=== PATIENT | female | born 1985 | race Caucasian/White ===

== ENCOUNTER 2016-11-24 19:28 | Emergency (ER) ==
[2016-11-24 19:38] VITALS: BP 118/70; TEMP 99; BMI 21.4
[2016-11-24] MEDS ORDERED: TORADOL IM STA (20:00)
[2016-11-24] MEDS ORDERED: CLEOCIN PO STA (20:00)
--- NOTE | 2016-11-24 20:03 | ED.PDOC ---
General ED Provider: Dr. BARRY LYONS Chief Complaint: Tooth Problem Stated Complaint: Right upper gum is swollen and tender. Time Seen by Physician: 20:00 Mode of Arrival: Walk-In Information Source: Patient Primary Care Provider: BARRY LYONS[facility] Nursing and Triage Documentation Reviewed and Agree: Yes EENT Complaint Exam - Dental/Oral Complaint/Exam Mechanism of Injury: No known trauma Symptoms Are: Still present Timing: Constant Initial Severity: Moderate Current Severity: Moderate Character: Reports: Aching Aggravating: Reports: Cold, Chewing Alleviating: Reports: None Associated Signs and Symptoms: Reports: Swelling, Foul odor, Foul taste in mouth Related History: Reports: Similar episode (multiple) Cardiac Risk Factors: Reports: None Dental/Oral Surgical History: Reports: None Tooth Findings: Present: Cellulitis (of the gum) Teeth Picture: 1 - no teeth, swollen gums Differential Diagnoses: Gingivitis Review of Systems - Review Of Systems Constitutional: Reports: No symptoms Eyes: Reports: No symptoms Ears, Nose, Mouth, Throat: Reports: No symptoms Respiratory: Reports: No symptoms Cardiac: Reports: No symptoms GI: Reports: No symptoms : Reports: No symptoms Musculoskeletal: Reports: No symptoms Skin: Reports: No symptoms Neurological: Reports: No symptoms Endocrine: Reports: No symptoms Hematologic/Lymphatic: Reports: No symptoms All Other Systems: Reviewed and Negative Past Medical History - Past Medical History Previously Healthy: No Endocrine: Reports: None Cardiovascular: Reports: None Respiratory: Reports: None Hematological: Reports: None Gastrointestinal: Reports: None Genitourinary: Reports: None Neuro/Psych: Reports: Other (similar episodes in the past, ( has been told her that they are from anxiety.)) Musculoskeletal: Reports: None Cancer: Reports: None Last Menstrual Period: 10/31/2016 - Surgical History General Surgical History: Reports: None - Family History Family History: Reports: None - Social History Smoking Status: Current every day smoker Smoking Cessation Counseling Time: > 3 min - 10 min Hx Substance Use: Yes (WEED) Alcohol Screening: None Physical Exam - Physical Exam Appearance: Well-appearing, No pain distress, Well-nourished Eyes: ZACKARY, EOMI, Conjunctiva clear ENT: Ears normal, Nose normal, Oropharynx normal Respiratory: Airway patent, Breath sounds clear, Breath sounds equal, Respirations nonlabored Cardiovascular: RRR, Pulses normal, No rub, No murmur GI/: Soft, Nontender, No masses, Bowel sounds normal, No Organomegaly Musculoskeletal: Normal strength, ROM intact, No edema, No calf tenderness Skin: Warm, Dry, Normal color Neurological: Sensation intact, Motor intact, Reflexes intact, Cranial nerves intact, Alert, Oriented Psychiatric: Affect appropriate, Mood appropriate Critical Care Note - Critical Care Note Total Time (mins): 0 Course - Course Orders, Labs, Meds: Orders Category Date Time Status Clindamycin HCl [Cleocin] MEDS 11/24/16 20:00 Stat 300 mg PO ONCE STA Ketorolac Tromethamine [Toradol] MEDS 11/24/16 20:00 Stat 30 mg IM ONCE STA Vital Signs: Temp Pulse Resp BP Pulse Ox 11/24/16 19:28 99.0 F 106 H 18 118/70 98 Departure - Departure Time of Disposition: 20:05 Disposition: HOME SELF-CARE Discharge Problem: Gingivitis Instructions: Gingivitis (ED) Condition: Stable Pt referred to PMD for follow-up: Yes Additional Instructions: Needs f/u with dentist no solids Prescriptions: Clindamycin HCl 300 mg PO TID #15 capsule Tramadol HCl 50 mg PO BID #14 tablet Allergies/Adverse Reactions: Allergies diphenhydramine [From Benadryl] Adverse Reaction (Verified 11/24/16 19:33) Penicillins Adverse Reaction (Verified 11/24/16 19:33) Swelling Home Medications: Ambulatory Orders Clindamycin HCl 300 mg PO TID #15 capsule 11/24/16 Tramadol HCl 50 mg PO BID #14 tablet 11/24/16 Disposition Discussed With: Patient
== END 2016-11-24 20:21 | disposition home or self-care (01) ==
LOC: ED 19:28
DX: K05.00 Acute gingivitis, plaque induced (principal); F17.210 Nicotine dependence, cigarettes, uncomplicated
CPT/HCPCS: 96372; 99282

== ENCOUNTER 2016-12-24 | Emergency (ER) ==
[2016-12-24 00:09] VITALS: BP 102/70; TEMP 98.6; BMI 21.1
[2016-12-24] MEDS ORDERED: TYLENOL #3 TAB PO STA (00:31)
[2016-12-24] MEDS ORDERED: SILVADENE CREAM TP ONE (00:31)
[2016-12-24] MEDS ORDERED: SILVADENE CREAM TP STA (00:31)
[2016-12-24] MEDS ORDERED: TYLENOL #3 TAB ONE (00:32)
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
== END 2016-12-24 00:53 | disposition home or self-care (01) ==
LOC: ED
DX: T25.021A Burn of unspecified degree of right foot, initial encounter (principal); X15.8XXA Contact with other hot household appliances, initial encounter
CPT/HCPCS: 99282; 99283

== ENCOUNTER 2017-01-15 20:50 | Emergency (ER) ==
[2017-01-15 20:56] VITALS: BMI 21.0
[2017-01-15] MEDS ORDERED: SODIUM CHLORIDE 1,000 ML IV STA (21:06)
[2017-01-15] MEDS ORDERED: MORPHINE 2 MG/ML SYRINGE IVP STA (21:06)
[2017-01-15] MEDS ORDERED: ZOFRAN 4 MG/2 ML IVP STA (21:06)
[2017-01-15 21:22] LABS: BASOPHILS % (AUTO) 0.4 % (0.0-3.0); EOSINOPHILS # (AUTO) 0.2 K/ul (0.0-0.7); EOSINOPHILS % (AUTO) 1.8 % (0.0-7.0); HEMATOCRIT 30.3 % (37.0-47.0); HEMOGLOBIN 10.4 g/dl (12.0-16.0); IMMATURE GRANULOCYTE % (AUTO) 0.4 % (0.0-5.0); LYMPHOCYTES # (AUTO) 2.3 K/uL (0.60-3.4); LYMPHOCYTES % (AUTO) 22.8 (10.0-50.0); MEAN CORPUSCULAR HGB CONC 34.3 (31.8-35.4); MEAN CORPUSCULAR VOLUME 90.4 fl (81.0-99.0); MONOCYTES # (AUTO) 0.8 K/uL (0.4-2.0); MONOCYTES % (AUTO) 7.7 (0-10); NEUTROPHILS # (AUTO) 6.8 K/ul (2.0-6.9); NEUTROPHILS % (AUTO) 66.9; PLATELET COUNT 328 10^3/uL (140-440); RED BLOOD COUNT 3.35 10^6/ul (4.20-5.40); WHITE BLOOD COUNT 10.09 K/ul (4.6-10.2)
[2017-01-15 21:28] LABS: BILIRUBIN,URINE Negative (NEGATIVE); KETONES,URINE Negative (NEGATIVE); LEUKOCYTE ESTERASE ,URINE Negative (NEGATIVE); NITRITE,URINE Negative (NEGATIVE); PH,URINE 5.5 (5-9); PROTEIN,URINE Trace (NEGATIVE); URINE, BLOOD Trace-intact (NEGATIVE)
[2017-01-15 21:35] LABS: ADD URINE MICROSCOPIC YES; BACTERIA,URINE 1+ (NOT PRESENT)
[2017-01-15 21:39] LABS: FLU INTERNAL QC INTERNAL QC VALID; RAPID FLU A NEGATIVE (NEGATIVE); RAPID FLU B NEGATIVE (NEGATIVE)
[2017-01-15 21:48] LABS: ALBUMIN 3.2 g/dL (3.4-5.0); ALBUMIN/GLOBULIN RATIO 0.94; ANION GAP 11.9; BILIRUBIN,TOTAL 0.17 mg/dL (0.00-1.20); BUN/CREATININE RATIO 19.67; CREATININE 0.61 mg/dL (0.60-1.30); POTASSIUM 3.9 mmol/L (3.5-5.10); TOTAL PROTEIN 6.6 g/dL (6.4-8.2)
[2017-01-15 21:51] LABS: ERYTHROCYTE SEDIMENTATION RATE 44 mm/hr (0-20); ESR INTERNAL QC INTERNAL QC VALID
[2017-01-15 22:09] LABS: ACETAMINOPHEN < 3 ug/ml (10-30); SALICYLATE < 5.0 mg/dL (2.8-20.0)
[2017-01-15 22:10] LABS: SERUM PREGNANCY INTERNAL QC INTERNAL QC VALID
--- NOTE | 2017-01-15 22:19 | ED.PDOC ---
General ED Provider: Dr. VEENA SEPULVEDA-ER Chief Complaint: Abdominal Pain Stated Complaint: daniel been hurting for several weeeks..daniel been taking a lot of motrin and tylenol pm -- Time Seen by Physician: 20:55 Mode of Arrival: Walk-In Information Source: Patient Exam Limitations: No limitations Primary Care Provider: ABRRY LYONS[facility] Nursing and Triage Documentation Reviewed and Agree: Yes GI Complaint Exam - Abdominal Pain Complaint/Exam Onset: Gradual Duration: several weeks Symptoms Are: Still present Timing: Constant Initial Severity: Mild Current Severity: Moderate Location of Pain: RUQ, LLQ Radiates To: Reports: Back Character: Reports: Dull, Aching Aggravating: Reports: None Alleviating: Reports: None Associated Signs and Symptoms: Reports: Back pain, Decreased appetite, Nausea. Denies: Diaphoresis, Fever, Cough, Chest pain, Dizziness, Constipation, Blood in stool, Dysuria, Urinary frequency, Decreased urine output, Vaginal bleeding, Vaginal discharge, Vomiting, Diarrhea, Sore throat AAA Risk Factors: Reports: None Cardiac Risk Factors: Reports: None Patient Rh Status: Unknown Abdominal Findings: Present: None Differential Diagnoses: Pancreatitis, Ectopic Review of Systems - Review Of Systems Constitutional: Reports: No symptoms Eyes: Reports: No symptoms Ears, Nose, Mouth, Throat: Reports: No symptoms Respiratory: Reports: No symptoms Cardiac: Reports: No symptoms GI: Reports: Abdominal pain, Nausea : Reports: No symptoms Musculoskeletal: Reports: No symptoms Skin: Reports: No symptoms Neurological: Reports: No symptoms Endocrine: Reports: No symptoms Hematologic/Lymphatic: Reports: No symptoms All Other Systems: Reviewed and Negative Past Medical History - Past Medical History Previously Healthy: No Endocrine: Reports: None Cardiovascular: Reports: None Respiratory: Reports: None Hematological: Reports: None Gastrointestinal: Reports: None Genitourinary: Reports: None Neuro/Psych: Reports: Other (similar episodes in the past, ( has been told her that they are from anxiety.)) Musculoskeletal: Reports: None Cancer: Reports: None Last Menstrual Period: 3 months - Surgical History General Surgical History: Reports: None - Family History Family History: Reports: None - Social History Smoking Status: Current every day smoker, Light tobacco smoker Hx Substance Use: No Alcohol Screening: None Lives: With family Physical Exam - Physical Exam Appearance: Well-appearing, No pain distress, Well-nourished Pain Distress: Mild Eyes: ZACKARY, EOMI, Conjunctiva clear ENT: Ears normal, Nose normal, Oropharynx normal Neck: Supple Respiratory: Airway patent, Breath sounds clear, Breath sounds equal, Respirations nonlabored Cardiovascular: RRR GI/: Soft Musculoskeletal: Normal strength Skin: Warm, Dry, Normal color Neurological: Sensation intact, Motor intact, Reflexes intact, Cranial nerves intact, Alert, Oriented Psychiatric: Affect appropriate, Mood appropriate Re-Evaluation - Re-Evaluation Time of Re-Evaluation: 22:21 Status: Improved Vital Signs Stable: Yes Pain Level: 1 Appearance: NAD Lungs: Clear Skin: Warm and Dry Neuro: Alert and Oriented X3 CV: RRR Physician Notification - Case Discussed Physician Notified: dr guillaume Time of Notification: 22:27 Critical Care Note - Critical Care Note Total Time (mins): 0 Course - Course Hematology/Chemistry: 01/15/17 21:15 01/15/17 21:15 Orders, Labs, Meds: Lab Review 01/15/17 01/15/17 01/15/17 21:00 21:14 21:15 WBC 10.09 RBC 3.35 L Hgb 10.4 L Hct 30.3 L MCV 90.4 MCH 31.0 MCHC 34.3 RDW Coeff of Jeffrey 14.2 Plt Count 328 Immature Gran % (Auto) 0.4 Neut % (Auto) 66.9 Lymph % (Auto) 22.8 Hinds % (Auto) 7.7 Eos % (Auto) 1.8 Baso % (Auto) 0.4 Immature Gran # (Auto) 0.0 Neut # 6.8 Lymph # 2.3 Hinds # 0.8 Eos # 0.2 Baso # 0.0 ESR 44 H Sodium 137 Potassium 3.9 Chloride 105 Carbon Dioxide 24 Anion Gap 11.9 BUN 12 Creatinine 0.61 Estimated GFR (MDRD) 114.00 BUN/Creatinine Ratio 19.67 Glucose 83 Calcium 9.0 Total Bilirubin 0.17 AST 185 H ALT 215 H Alkaline Phosphatase 88 Total Protein 6.6 Albumin 3.2 L Globulin 3.4 Albumin/Globulin Ratio 0.94 Amylase 96 Lipase 45 HCG, Quant 02818.80 Serum , Qual Positive Urine Color Yellow Urine Clarity Clear Urine pH 5.5 Ur Specific [place] >=1.030 Urine Protein Trace Urine Glucose (UA) Negative Urine Ketones Negative Urine Blood Trace-intact Urine Nitrite Negative Urine Bilirubin Negative Urine Urobilinogen 0.2 Ur Leukocyte Esterase Negative Urine Microscopic RBC 0-2 Urine Microscopic WBC 0-2 Ur Squamous Epith Cells 2-5 Urine Bacteria 1+ Salicylate Level mg/dL < 5.0 Acetaminophen < 3 L Influenza A (Rapid) Influenza B (Rapid) 01/15/17 21:25 WBC RBC Hgb Hct MCV MCH MCHC RDW Coeff of Jeffrey Plt Count Immature Gran % (Auto) Neut % (Auto) Lymph % (Auto) Hinds % (Auto) Eos % (Auto) Baso % (Auto) Immature Gran # (Auto) Neut # Lymph # Hinds # Eos # Baso # ESR Sodium Potassium Chloride Carbon Dioxide Anion Gap BUN Creatinine Estimated GFR (MDRD) BUN/Creatinine Ratio Glucose Calcium Total Bilirubin AST ALT Alkaline Phosphatase Total Protein Albumin Globulin Albumin/Globulin Ratio Amylase Lipase HCG, Quant Serum , Qual Urine Color Urine Clarity Urine pH Ur Specific [place] Urine Protein Urine Glucose (UA) Urine Ketones Urine Blood Urine Nitrite Urine Bilirubin Urine Urobilinogen Ur Leukocyte Esterase Urine Microscopic RBC Urine Microscopic WBC Ur Squamous Epith Cells Urine Bacteria Salicylate Level mg/dL Acetaminophen Influenza A (Rapid) Negative Influenza B (Rapid) Negative Orders Category Date Time Status NPO REMINDER: IMAGING ONCE CARE 01/15/17 21:06 Active IV [ED IV/MEDIPORT/POWERPORT] .ONCE EMERGENCY 01/15/17 21:06 Active AMYLASE Stat LAB 01/15/17 21:15 Completed CBC W/ AUTO DIFF Stat LAB 01/15/17 21:15 Completed COMPREHENSIVE METABOLIC PANEL Stat LAB 01/15/17 21:15 Completed ESR Stat LAB 01/15/17 21:15 Completed HCG,QUANTITATIVE Stat LAB 01/15/17 21:15 Completed LIPASE Stat LAB 01/15/17 21:15 Completed RAPID FLU A/B Stat LAB 01/15/17 21:25 Completed SALICYLATE Stat LAB 01/15/17 21:14 Completed SERUM Stat LAB 01/15/17 21:15 Completed STREP SCREEN Stat LAB 01/15/17 21:25 Received TYLENOL LEVEL [ACETAMINOPHEN] Stat LAB 01/15/17 21:14 Completed URINALYSIS C & S IF INDICATED Stat LAB 01/15/17 21:00 Completed URINE CULTURE Stat LAB 01/15/17 21:35 Received 0.9 % Sodium Chloride [Saline Flush] MEDS 01/15/17 21:06 Ordered 1 syr IVF PRN PRN Morphine Sulfate [Morphine 2 mg/ml Syringe] MEDS 01/15/17 21:06 Discontinued 2 mg IVP ONCE STA Ondansetron HCl/Pf [Zofran 4 mg/2 ml] MEDS 01/15/17 21:06 Discontinued 4 mg IVP ONCE STA Sodium Chloride 0.9% [Sodium Chloride] 1,000 ml MEDS 01/15/17 21:06 Active IV 100 mls/hr Medications Generic Name Dose Route Start Last Admin Trade Name Freq PRN Reason Stop Dose Admin Sodium Chloride 1,000 mls @ 100 mls/hr 01/15/17 21:06 01/15/17 21:36 Sodium Chloride IV 01/16/17 07:05 100 mls/hr .Q10H STA Administration Sodium Chloride 1 syr 01/15/17 21:06 01/15/17 21:45 Saline Flush IVF 1 syr PRN PRN Administration To flush IV Discontinued Medications Generic Name Dose Route Start Last Admin Trade Name Freq PRN Reason Stop Dose Admin Morphine Sulfate 2 mg 01/15/17 21:06 01/15/17 21:39 Morphine 2 Mg/Ml Syringe IVP 01/15/17 21:07 2 mg ONCE STA Administration Ondansetron HCl 4 mg 01/15/17 21:06 01/15/17 21:38 Zofran 4 Mg/2 Ml IVP 01/15/17 21:07 4 mg ONCE STA Administration Vital Signs: Temp Pulse Resp BP Pulse Ox 01/15/17 20:50 100 F H 126 H 24 144/77 H 98 Departure - Departure Time of Disposition: 22:21 Disposition: TSF SHORT-TRM HOSP Discharge Problem: Abdominal pain, test positive Instructions: Abdominal Pain (ED) Condition: Fair Pt referred to PMD for follow-up: No Allergies/Adverse Reactions: Allergies diphenhydramine [From Benadryl] Adverse Reaction (Verified 01/15/17 20:58) Penicillins Adverse Reaction (Verified 01/15/17 20:58) Swelling Home Medications: Ambulatory Orders 1 [No Reported Medications] 12/24/16 Disposition Discussed With: Patient, Family
[2017-01-15 22:37] VITALS: BP 112/79; TEMP 98.2
[2017-01-15 22:50] LABS: COCAIN SCREEN,URINE NEGATIVE (NEGATIVE)
== END 2017-01-15 23:26 | disposition short-term general hospital (02) ==
LOC: ED 20:50
DX: R10.11 Right upper quadrant pain (principal); R10.32 Left lower quadrant pain; F17.210 Nicotine dependence, cigarettes, uncomplicated; Z33.1 Pregnant state, incidental
CPT/HCPCS: 36415; 80053; 80306; 80307; 81001; 82150; 83690; 84702; 84703; 85025; 85651; 87086; 87651; 87804; 87880; 96361; 96374; 96375; 99285

== ENCOUNTER 2017-01-23 14:50 | Emergency (ER) ==
[2017-01-23 15:09] VITALS: BP 115/78; TEMP 98.7; BMI 21.5
[2017-01-23 15:45] LABS: BASOPHILS % (AUTO) 0.3 % (0.0-3.0); EOSINOPHILS # (AUTO) 0.1 K/ul (0.0-0.7); EOSINOPHILS % (AUTO) 0.8 % (0.0-7.0); HEMATOCRIT 31.7 % (37.0-47.0); HEMOGLOBIN 10.9 g/dl (12.0-16.0); IMMATURE GRANULOCYTE % (AUTO) 0.3 % (0.0-5.0); LYMPHOCYTES # (AUTO) 1.7 K/uL (0.60-3.4); MEAN CORPUSCULAR HEMOGLOBIN 31.1 pg (27.0-31.0); MEAN CORPUSCULAR HGB CONC 34.4 (31.8-35.4); MEAN CORPUSCULAR VOLUME 90.6 fl (81.0-99.0); MONOCYTES # (AUTO) 0.8 K/uL (0.4-2.0); MONOCYTES % (AUTO) 9.6 (0-10); NEUTROPHILS # (AUTO) 5.3 K/ul (2.0-6.9); PLATELET COUNT 347 10^3/uL (140-440); WHITE BLOOD COUNT 7.92 K/ul (4.6-10.2)
[2017-01-23 16:08] LABS: PARTIAL THROMBOPLASTIN TIME 27.4 SEC (23.9-40.0); PROTHROMBIN TIME 9.4 SEC (9.3-11.0)
[2017-01-23 16:15] LABS: ALBUMIN 3.3 g/dL (3.4-5.0); ALBUMIN/GLOBULIN RATIO 0.85; ANION GAP 10.7; BILIRUBIN,TOTAL 0.49 mg/dL (0.00-1.20); BUN/CREATININE RATIO 16.12; CALCIUM 9.1 mg/dL (8.2-10.2); CREATININE 0.62 mg/dL (0.60-1.30); POTASSIUM 3.7 mmol/L (3.5-5.10); TOTAL PROTEIN 7.2 g/dL (6.4-8.2)
--- NOTE | 2017-01-23 16:46 | ED.PDOC ---
General ED Provider: Dr. JELANI TURCIOS Chief Complaint: Vaginal Bleeding Stated Complaint: vaginal spotting , abdominal pain Time Seen by Physician: 14:55 (RLQ pain x 14 hours and scant vaginal spotting after intercourse last night) Mode of Arrival: Walk-In Information Source: Patient, Family Exam Limitations: No limitations [facility] Nursing and Triage Documentation Reviewed and Agree: Yes GI Complaint Exam - Abdominal Pain Complaint/Exam Onset: Gradual Duration: 15 hours Symptoms Are: Resolved Timing: Intermittent Initial Severity: Mild Current Severity: None Location of Pain: RLQ Character: Reports: Dull Aggravating: Reports: None Alleviating: Reports: None Associated Signs and Symptoms: Denies: Diaphoresis, Fever, Cough, Chest pain, Dizziness, Back pain, Constipation, Blood in stool, Dysuria, Urinary frequency, Decreased urine output, Decreased appetite, Vaginal bleeding, Vaginal discharge , Nausea, Vomiting, Diarrhea, Sore throat, Decreased activity : 2 Para: 1 Hx Total # of Abortions (Spontaneous & Elective): 0 AAA Risk Factors: Reports: None Cardiac Risk Factors: Reports: None Ectopic Risk Factors: Reports: None Ovarian Torsion Risk Factors: Reports: None Surgical Obstruction Risk Factors: Reports: None Related Surgical History: Reports: None Patient Rh Status: Unknown Abdominal Findings: Present: None (spouse present at all times ) Review of Systems - Review Of Systems Constitutional: Reports: No symptoms Eyes: Reports: No symptoms Ears, Nose, Mouth, Throat: Reports: No symptoms Respiratory: Reports: No symptoms Cardiac: Reports: No symptoms GI: Reports: Abdominal pain : Reports: Other (vaginal spotting) Musculoskeletal: Reports: No symptoms Skin: Reports: No symptoms Neurological: Reports: No symptoms Endocrine: Reports: No symptoms Hematologic/Lymphatic: Reports: No symptoms All Other Systems: Reviewed and Negative Past Medical History - Past Medical History Previously Healthy: Yes Endocrine: Reports: None Cardiovascular: Reports: None Respiratory: Reports: None Hematological: Reports: None Gastrointestinal: Reports: None Genitourinary: Reports: None Neuro/Psych: Reports: None Musculoskeletal: Reports: None Cancer: Reports: None Last Menstrual Period: 10/27 - Surgical History General Surgical History: Reports: None - Family History Family History: Reports: None - Social History Smoking Status: Former smoker Hx Substance Use: No Alcohol Screening: None - Immunizations Tetanus Shot up to Date: Yes Physical Exam - Physical Exam Appearance: Well-appearing, No pain distress, Well-nourished Eyes: ZACKARY, EOMI, Conjunctiva clear ENT: Ears normal, Nose normal, Oropharynx normal Respiratory: Airway patent, Breath sounds clear, Breath sounds equal, Respirations nonlabored Cardiovascular: RRR, Pulses normal, No rub, No murmur GI/: Soft, Nontender, No masses, Bowel sounds normal, No Organomegaly Musculoskeletal: Normal strength, ROM intact, No edema, No calf tenderness Skin: Warm, Dry, Normal color Neurological: Sensation intact, Motor intact, Reflexes intact, Cranial nerves intact, Alert, Oriented Psychiatric: Affect appropriate, Mood appropriate Critical Care Note - Critical Care Note Total Time (mins): 0 Course - Course Hematology/Chemistry: 01/23/17 15:38 01/23/17 15:38 Orders, Labs, Meds: Lab Review 01/23/17 15:38 WBC 7.92 RBC 3.50 L Hgb 10.9 L Hct 31.7 L MCV 90.6 MCH 31.1 H MCHC 34.4 RDW Coeff of Jeffrey 14.4 Plt Count 347 Immature Gran % (Auto) 0.3 Neut % (Auto) 67.0 Lymph % (Auto) 22.0 [place] % (Auto) 9.6 Eos % (Auto) 0.8 Baso % (Auto) 0.3 Immature Gran # (Auto) 0.0 Neut # 5.3 Lymph # 1.7 [place] # 0.8 Eos # 0.1 Baso # 0.0 PT 9.4 INR 0.91 APTT 27.4 Sodium 135 L Potassium 3.7 Chloride 103 Carbon Dioxide 25 Anion Gap 10.7 BUN 10 Creatinine 0.62 Estimated GFR (MDRD) 112.00 BUN/Creatinine Ratio 16.12 Glucose 84 Calcium 9.1 Total Bilirubin 0.49 AST 553 H ALT 692 H Alkaline Phosphatase 138 H Total Protein 7.2 Albumin 3.3 L Globulin 3.9 Albumin/Globulin Ratio 0.85 Orders Category Date Time Status Heart Tones [ED HEART RATE] .ONCE EMERGENCY 01/23/17 15:34 Active BLOOD CULTURE Stat LAB 01/23/17 15:38 Received CBC W/ AUTO DIFF Stat LAB 01/23/17 15:38 Completed COMPREHENSIVE METABOLIC PANEL Stat LAB 01/23/17 15:38 Completed PARTIAL THROMBOPLASTIN TIME Stat LAB 03/14/17 15:38 Completed PT WITH INR Stat LAB 01/23/17 15:38 Completed Vital Signs: Temp Pulse Resp BP Pulse Ox 01/23/17 14:50 98.7 F 88 20 115/78 99 Departure - Departure Time of Disposition: 16:50 (left amam refused to stay) Disposition: AMA Discharge Problem: Abdominal pain Instructions: Acute Abdominal Pain (ED) Condition: Good Pt referred to PMD for follow-up: No Additional Instructions: Please call your Family Physician as soon as possible to schedule a follow-up appointment. Allergies/Adverse Reactions: Allergies diphenhydramine [From Benadryl] Adverse Reaction (Verified 01/23/17 14:59) Penicillins Adverse Reaction (Verified 01/23/17 14:58) Home Medications: Ambulatory Orders Vit37/Iron/Folic Acid [Prenata Chewable Tablet] 2 mg PO DAILY 01/23/17
== END 2017-01-23 16:30 | disposition left against medical advice (07) ==
LOC: ED 14:50 → MERGE 14:50 → ED 16:30
DX: R10.31 Right lower quadrant pain (principal); Z33.1 Pregnant state, incidental
CPT/HCPCS: 36415; 80053; 85025; 85610; 85730; 87040; 99283

== ENCOUNTER 2017-02-07 01:08 | Emergency (ER) ==
--- NOTE | 2017-02-07 01:17 | ED.PDOC ---
General ED Provider: Dr. BARRY LYONS Chief Complaint: Non-specific Complaint Stated Complaint: been itching for 1 wk, on legs and all over. she is 19 wks Time Seen by Physician: 01:15 Nursing and Triage Documentation Reviewed and Agree: Yes Skin Complaint Exam - Skin Rash/Itching Complaint/Exam Symptoms Are: Still present Initial Severity: Mild Current Severity: Mild Potential Exposures: Reports: Unknown Alleviating: Reports: None Associated Signs and Symptoms: Denies: Difficulty breathing, Fever, Chills Skin Findings: Present: Weeping skin Differential Diagnoses: Allergic Reaction, Contact Dermatitis, Scabies Review of Systems - Review Of Systems Constitutional: Reports: Weakness Eyes: Reports: No symptoms Ears, Nose, Mouth, Throat: Reports: No symptoms Respiratory: Reports: No symptoms Cardiac: Reports: No symptoms GI: Reports: No symptoms : Reports: No symptoms Musculoskeletal: Reports: No symptoms Skin: Reports: Rash Neurological: Reports: No symptoms Endocrine: Reports: No symptoms Hematologic/Lymphatic: Reports: No symptoms All Other Systems: Reviewed and Negative Past Medical History - Past Medical History Previously Healthy: Yes Endocrine: Reports: None Cardiovascular: Reports: None Respiratory: Reports: None Hematological: Reports: None Gastrointestinal: Reports: None Genitourinary: Reports: None Neuro/Psych: Reports: None, Other Musculoskeletal: Reports: None Cancer: Reports: None - Surgical History General Surgical History: Reports: None - Family History Family History: Reports: None - Social History Smoking Status: Light tobacco smoker, Current every day smoker, Former smoker Smoking Cessation Counseling Time: > 10 min Hx Substance Use: No Alcohol Screening: None Physical Exam - Physical Exam Appearance: Well-appearing, No pain distress, Well-nourished Eyes: ZACKARY, EOMI, Conjunctiva clear ENT: Ears normal, Nose normal, Oropharynx normal Respiratory: Airway patent, Breath sounds clear, Breath sounds equal, Respirations nonlabored Cardiovascular: RRR, Pulses normal, No rub, No murmur GI/: Soft, Nontender, No masses, Bowel sounds normal, No Organomegaly Musculoskeletal: Normal strength, ROM intact, No edema, No calf tenderness Skin: Warm, Dry, Normal color Neurological: Sensation intact, Motor intact, Reflexes intact, Cranial nerves intact, Alert, Oriented Psychiatric: Affect appropriate, Mood appropriate Critical Care Note - Critical Care Note Total Time (mins): 0 Course - Course Hematology/Chemistry: 02/07/17 01:27 02/07/17 01:27 Orders, Labs, Meds: Lab Review 02/07/17 02/07/17 01:27 01:50 WBC 7.93 RBC 3.46 L Hgb 10.7 L Hct 30.9 L MCV 89.3 MCH 30.9 MCHC 34.6 RDW Coeff of Jeffrey 14.5 Plt Count 365 Immature Gran % (Auto) 0.5 Neut % (Auto) 57.4 Lymph % (Auto) 28.1 [place] % (Auto) 10.8 H Eos % (Auto) 2.8 Baso % (Auto) 0.4 Immature Gran # (Auto) 0.0 Neut # 4.6 Lymph # 2.2 [place] # 0.9 Eos # 0.2 Baso # 0.0 Sodium 136 Potassium 3.6 Chloride 107 Carbon Dioxide 21 Anion Gap 11.6 BUN 10 Creatinine 0.66 Estimated GFR (MDRD) 104.00 BUN/Creatinine Ratio 15.15 Glucose 87 Calcium 8.5 Total Bilirubin 0.77 AST 646 H ALT 703 H Alkaline Phosphatase 205 H Total Protein 6.9 Albumin 3.0 L Globulin 3.9 Albumin/Globulin Ratio 0.77 Urine Color Yellow Urine Clarity Clear Urine pH 5.5 Ur Specific [place] 1.020 Urine Protein Negative Urine Glucose (UA) Negative Urine Ketones Negative Urine Blood Negative Urine Nitrite Negative Urine Bilirubin Negative Urine Urobilinogen 4.0 Ur Leukocyte Esterase Negative Urine Opiates Screen Positive Ur Oxycodone Screen Negative Urine Methadone Screen Negative Ur Propoxyphene Screen Negative Ur Barbiturates Screen Negative U Tricyclic Antidepress Negative Ur Phencyclidine Scrn Negative Ur Amphetamine Screen Negative U Methamphetamines Scrn Negative U Benzodiazepines Scrn Positive Urine Cocaine Screen Negative U Cannabinoids Screen Positive Orders Category Date Time Status CBC W/ AUTO DIFF Stat LAB 02/07/17 01:27 Completed COMPREHENSIVE METABOLIC PANEL Stat LAB 02/07/17 01:27 Completed HEPATITIS PANEL, ACUTE Stat LAB 02/07/17 01:30 Received URINALYSIS C & S IF INDICATED Stat LAB 02/07/17 01:50 Completed URINE DRUG SCREEN (RAPID FOR ED) [DRUG SCREEN, URINE, LAB 02/07/17 01:50 Completed RAPID] Stat Dexamethasone 4 mg/ml Inj [Decadron 4 mg/ml Sdv] MEDS 02/07/17 01:20 Discontinued 4 mg IM ONCE STA Medications Discontinued Medications Generic Name Dose Route Start Last Admin Trade Name Freq PRN Reason Stop Dose Admin Dexamethasone Sodium Phosphate 4 mg 02/07/17 01:20 02/07/17 01:59 Decadron 4 Mg/Ml Sdv IM 02/07/17 01:21 4 mg ONCE STA Administration Vital Signs: Temp Pulse Resp BP Pulse Ox 02/07/17 01:10 97.1 F L 116 H 20 112/77 99 Departure - Departure Time of Disposition: 02:10 Disposition: HOME SELF-CARE Discharge Problem: Pruritus Instructions: Contact Dermatitis (ED) Condition: Stable Pt referred to PMD for follow-up: No Additional Instructions: do not take street drugs while u r . calamine lotion increase hydration have f/u with OBGYN prednisone 10 po bid x 8 continue benadryl prn please have f/u with PMD to recheck the liver enzymes. Allergies/Adverse Reactions: Allergies Penicillins Adverse Reaction (Verified 02/07/17 01:17) Swelling Home Medications: Ambulatory Orders Vit37/Iron/Folic Acid [Prenata Chewable Tablet] 2 mg PO DAILY 01/23/17 Disposition Discussed With: Patient, Family
[2017-02-07 01:19] VITALS: BP 112/77; TEMP 97.1; BMI 21.7
[2017-02-07] MEDS ORDERED: DECADRON 4 MG/ML SDV IM STA (01:20)
[2017-02-07 01:28] LABS: BASOPHILS % (AUTO) 0.4 % (0.0-3.0); EOSINOPHILS # (AUTO) 0.2 K/ul (0.0-0.7); EOSINOPHILS % (AUTO) 2.8 % (0.0-7.0); HEMATOCRIT 30.9 % (37.0-47.0); HEMOGLOBIN 10.7 g/dl (12.0-16.0); IMMATURE GRANULOCYTE % (AUTO) 0.5 % (0.0-5.0); LYMPHOCYTES # (AUTO) 2.2 K/uL (0.60-3.4); LYMPHOCYTES % (AUTO) 28.1 (10.0-50.0); MEAN CORPUSCULAR HEMOGLOBIN 30.9 pg (27.0-31.0); MEAN CORPUSCULAR HGB CONC 34.6 (31.8-35.4); MEAN CORPUSCULAR VOLUME 89.3 fl (81.0-99.0); MONOCYTES # (AUTO) 0.9 K/uL (0.4-2.0); MONOCYTES % (AUTO) 10.8 (0-10); NEUTROPHILS # (AUTO) 4.6 K/ul (2.0-6.9); NEUTROPHILS % (AUTO) 57.4; PLATELET COUNT 365 10^3/uL (140-440); RED BLOOD COUNT 3.46 10^6/ul (4.20-5.40); WHITE BLOOD COUNT 7.93 K/ul (4.6-10.2)
[2017-02-07 01:59] LABS: ALBUMIN/GLOBULIN RATIO 0.77; ANION GAP 11.6; BILIRUBIN,TOTAL 0.77 mg/dL (0.00-1.20); BUN/CREATININE RATIO 15.15; CALCIUM 8.5 mg/dL (8.2-10.2); CREATININE 0.66 mg/dL (0.60-1.30); POTASSIUM 3.6 mmol/L (3.5-5.10); TOTAL PROTEIN 6.9 g/dL (6.4-8.2)
[2017-02-07 02:04] LABS: ADD URINE MICROSCOPIC NO; BILIRUBIN,URINE Negative (NEGATIVE); KETONES,URINE Negative (NEGATIVE); LEUKOCYTE ESTERASE ,URINE Negative (NEGATIVE); NITRITE,URINE Negative (NEGATIVE); PH,URINE 5.5 (5-9); PROTEIN,URINE Negative (NEGATIVE); URINE, BLOOD Negative (NEGATIVE)
[2017-02-07 02:14] LABS: COCAIN SCREEN,URINE NEGATIVE (NEGATIVE)
== END 2017-02-07 02:40 | disposition home or self-care (01) ==
LOC: ED 01:08
DX: L29.9 Pruritus, unspecified (principal); L25.9 Unspecified contact dermatitis, unspecified cause; Z33.1 Pregnant state, incidental; R74.8 Abnormal levels of other serum enzymes; F17.210 Nicotine dependence, cigarettes, uncomplicated
CPT/HCPCS: 36415; 80053; 80074; 80306; 81001; 85025; 96372; 99283

== ENCOUNTER 2017-02-16 09:31 | Emergency (ER) ==
[2017-02-16 09:37] VITALS: BP 115/74; TEMP 95.8; BMI 21.9
[2017-02-16 10:40] LABS: BILIRUBIN,URINE Negative (NEGATIVE); KETONES,URINE Trace (NEGATIVE); LEUKOCYTE ESTERASE ,URINE Negative (NEGATIVE); NITRITE,URINE Negative (NEGATIVE); PROTEIN,URINE Trace (NEGATIVE); URINE, BLOOD Negative (NEGATIVE)
[2017-02-16 10:45] LABS: BASOPHILS % (AUTO) 0.4 % (0.0-3.0); EOSINOPHILS # (AUTO) 0.2 K/ul (0.0-0.7); EOSINOPHILS % (AUTO) 2.1 % (0.0-7.0); HEMATOCRIT 29.4 % (37.0-47.0); IMMATURE GRANULOCYTE % (AUTO) 0.6 % (0.0-5.0); LYMPHOCYTES % (AUTO) 23.2 (10.0-50.0); MEAN CORPUSCULAR HEMOGLOBIN 30.7 pg (27.0-31.0); MEAN CORPUSCULAR VOLUME 90.2 fl (81.0-99.0); MONOCYTES # (AUTO) 1.3 K/uL (0.4-2.0); MONOCYTES % (AUTO) 15.7 (0-10); NEUTROPHILS # (AUTO) 4.9 K/ul (2.0-6.9); PLATELET COUNT 398 10^3/uL (140-440); RED BLOOD COUNT 3.26 10^6/ul (4.20-5.40); WHITE BLOOD COUNT 8.45 K/ul (4.6-10.2)
[2017-02-16 10:49] LABS: ADD URINE MICROSCOPIC YES
[2017-02-16] MEDS ORDERED: LIDOCAINE 1 % AMP 5 ML (SUTURES) IM STA (11:09)
[2017-02-16] MEDS ORDERED: ROCEPHIN IM STA (11:09)
--- NOTE | 2017-02-16 11:13 | ED.PDOC ---
General ED Provider: Dr. JELANI TURCIOS Chief Complaint: Cough Stated Complaint: COUGH Time Seen by Physician: 09:34 (21 WEEKS ) Mode of Arrival: Walk-In Information Source: Patient Exam Limitations: No limitations [facility] and Triage Documentation Reviewed and Agree: Yes Respiratory Complaint Exam - Respiratory Complaint/Exam Symptoms Are: Still present Timing: Intermittent Initial Severity: Moderate Location: Chest Character: Reports: Productive cough (YELLOW) Alleviating: Reports: None Associated Signs and Symptoms: Reports: Nasal congestion. Denies: Rapid breathing, Dyspnea, Fever, Chills, Chest pain, Pleuritic chest pain, Wheezing, Hemoptysis, Dizziness, Calf pain, Calf swelling, Edema, URI, Hoarseness, Sinus discomfort, Vomiting, Sore throat, Weight loss, Decreased oral intake, Increased thirst, Increased appetite, Increased urination Related Surgical History: Reports: None Pulmonary Embolism Risk Factors: None Cardiac Risk Factors: Reports: None Pseudomonas Risk Factors: Reports: None Tuberculosis Risk Factors: Reports: None Status Asthmaticus Risk Factors: Reports: None Home Oxygen Use: No Recent Stress Test: No Recent Echo/LV Function: No Current Antibiotic Use: No Current Asthma Medication Use: No Respiratory Distress: None Inadequate Respiratory Effort: No Dysphagia Present: No Stridor Present: No JVD Present: No Retractions: Not Present Diminished Breath Sounds: No Sinus Tenderness: None Grunting Respirations: No Kussmaul Respirations: No Differential Diagnoses: Pneumonia, Bronchitis Review of Systems - Review Of Systems Constitutional: Reports: No symptoms Eyes: Reports: No symptoms Ears, Nose, Mouth, Throat: Reports: No symptoms Respiratory: Reports: Cough Cardiac: Reports: No symptoms GI: Reports: No symptoms : Reports: No symptoms Musculoskeletal: Reports: No symptoms Skin: Reports: No symptoms Neurological: Reports: No symptoms Endocrine: Reports: No symptoms Hematologic/Lymphatic: Reports: No symptoms All Other Systems: Reviewed and Negative Past Medical History - Past Medical History Previously Healthy: Yes Endocrine: Reports: None Cardiovascular: Reports: None Respiratory: Reports: None Hematological: Reports: None Gastrointestinal: Reports: None Genitourinary: Reports: None Neuro/Psych: Reports: None, Other Musculoskeletal: Reports: None Cancer: Reports: None Last Menstrual Period: october - Surgical History General Surgical History: Reports: None - Family History Family History: Reports: None - Social History Smoking Status: Former smoker Hx Substance Use: No Alcohol Screening: None - Immunizations Tetanus Shot up to Date: Yes Physical Exam - Physical Exam Appearance: Well-appearing, No pain distress, Well-nourished Eyes: ZACKARY, EOMI, Conjunctiva clear ENT: Ears normal, Nose normal, Oropharynx normal Respiratory: Airway patent, Breath sounds clear, Breath sounds equal, Respirations nonlabored Cardiovascular: RRR, Pulses normal, No rub, No murmur GI/: Soft, Nontender, No masses, Bowel sounds normal, No Organomegaly Musculoskeletal: Normal strength, ROM intact, No edema, No calf tenderness Skin: Warm, Dry, Normal color Neurological: Sensation intact, Motor intact, Reflexes intact, Cranial nerves intact, Alert, Oriented Psychiatric: Affect appropriate, Mood appropriate Critical Care Note - Critical Care Note Total Time (mins): 0 Course - Course Hematology/Chemistry: 02/16/17 09:52 Orders, Labs, Meds: Lab Review 02/16/17 02/16/17 09:50 09:52 WBC 8.45 RBC 3.26 L Hgb 10.0 L Hct 29.4 L MCV 90.2 MCH 30.7 MCHC 34.0 RDW Coeff of Jeffrey 14.6 Plt Count 398 Immature Gran % (Auto) 0.6 Neut % (Auto) 58.0 Lymph % (Auto) 23.2 [place] % (Auto) 15.7 H Eos % (Auto) 2.1 Baso % (Auto) 0.4 Immature Gran # (Auto) 0.1 Neut # 4.9 Lymph # 2.0 Holt # 1.3 Eos # 0.2 Baso # 0.0 Urine Color Yellow Urine Clarity Clear Urine pH 6.0 Ur Specific [place] 1.025 Urine Protein Trace Urine Glucose (UA) Negative Urine Ketones Trace Urine Blood Negative Urine Nitrite Negative Urine Bilirubin Negative Urine Urobilinogen 2.0 Ur Leukocyte Esterase Negative Urine Microscopic WBC 0-2 Ur Squamous Epith Cells 5-10 Urine Mucus 2+ Orders Category Date Time Status CBC W/ AUTO DIFF Stat LAB 02/16/17 09:52 Completed COMPREHENSIVE METABOLIC PANEL Stat LAB 02/16/17 10:20 Received URINALYSIS C & S IF INDICATED Stat LAB 02/16/17 09:50 Completed Ceftriaxone Sodium [Rocephin] MEDS 02/16/17 11:09 Stat 1 gm IM ONCE STA Lidocaine HCl/Pf [Lidocaine 1 % Amp 5 ml (Sutures)] MEDS 02/16/17 11:09 Stat 2.1 ml IM ONCE STA Medications Discontinued Medications Generic Name Dose Route Start Last Admin Trade Name Edis PRN Reason Stop Dose Admin Ceftriaxone Sodium 1 gm 02/16/17 11:09 Rocephin IM 02/16/17 11:10 ONCE STA Lidocaine HCl 2.1 ml 02/16/17 11:09 Lidocaine 1 % Amp 5 Ml (Sutures) IM 02/16/17 11:10 ONCE STA Vital Signs: Temp Pulse Resp BP Pulse Ox 02/16/17 09:32 95.8 F L 88 20 115/74 98 Departure - Departure Time of Disposition: 11:13 (SHE TOLD ME AND LUCY SHE CAN TAKE AMOXICILLIN ) Disposition: HOME SELF-CARE Discharge Problem: Cough Instructions: Bronchospasm (ED) Condition: Good Pt referred to PMD for follow-up: No Additional Instructions: Please call your Family Physician as soon as possible to schedule a follow-up appointment. Allergies/Adverse Reactions: Allergies Penicillins Adverse Reaction (Verified 02/07/17 01:17) Swelling Home Medications: Ambulatory Orders Vit37/Iron/Folic Acid [Prenata Chewable Tablet] 2 mg PO DAILY 01/23/17 Disposition Discussed With: Patient
[2017-02-16 11:27] LABS: ALBUMIN 2.8 g/dL (3.4-5.0); ALBUMIN/GLOBULIN RATIO 0.78; ANION GAP 11.7; BILIRUBIN,TOTAL 0.8 mg/dL (0.00-1.20); BUN/CREATININE RATIO 15.94; CALCIUM 8.7 mg/dL (8.2-10.2); CREATININE 0.69 mg/dL (0.60-1.30); POTASSIUM 3.7 mmol/L (3.5-5.10); TOTAL PROTEIN 6.4 g/dL (6.4-8.2)
== END 2017-02-16 11:53 | disposition home or self-care (01) ==
LOC: ED 09:31
DX: J98.01 Acute bronchospasm (principal); Z33.1 Pregnant state, incidental
CPT/HCPCS: 36415; 80053; 81001; 85025; 96372; 99283

== ENCOUNTER 2017-05-17 13:10 | Emergency (ER) ==
[2017-05-17 13:19] VITALS: BP 122/89; TEMP 97.6; BMI 24.9
--- NOTE | 2017-05-17 13:31 | ED.PDOC ---
General ED Provider: Dr. JELANI TURCIOS Chief Complaint: Back Pain Stated Complaint: back pain Time Seen by Physician: 13:17 (none injury 34 weeks none injury ) Mode of Arrival: Wheelchair Information Source: Patient Exam Limitations: No limitations Primary Care Provider: BARRY MAOSahra Nursing and Triage Documentation Reviewed and Agree: Yes Musculoskeletal Complaint Exam - Back Pain Complaint/Exam Mechanism of Injury: Reports: No known trauma Onset/Duration: today Symptoms Are: Still present Timing: Constant Episodes Lasting: Hours Initial Severity: Moderate Current Severity: Moderate Location: Reports: Discrete Character: Reports: Aching Aggravating: Reports: Movements, Lifting, Bending, Walking Alleviating: Reports: Rest, Position Associated Signs and Symptoms: Denies: Swelling, Redness, Bruising, Fever, Weakness, Numbness, Tingling, Abdominal pain, Flank pain, Bladder incontinence, Bowel incontinence, Weight loss, Pain with weight bearing TAD Risk Factors: Reports: None AAA Risk Factors: Reports: None Cauda Equina Risk Factors: Reports: None Epidural Abcess Risk Factors: Reports: None Related Surgical History: Reports: None Focal Tenderness: No Paraspinal Muscle Tenderness: No Paraspinal Muscle Spasm: Yes Scoliosis: No Lordosis: No Kyphosis: No SLR Test: Right Negative, Left Negative Hip Motion Testing Pain: Right Negative, Left Negative Focal Weakness: Present: None Focal Sensory Loss: Present: None Gait: Present: Normal Differential Diagnoses: Strain, Sprain Review of Systems - Review Of Systems Constitutional: Reports: No symptoms Eyes: Reports: No symptoms Ears, Nose, Mouth, Throat: Reports: No symptoms Respiratory: Reports: No symptoms Cardiac: Reports: No symptoms GI: Reports: No symptoms : Reports: No symptoms Musculoskeletal: Reports: Back pain Skin: Reports: No symptoms Neurological: Reports: No symptoms Endocrine: Reports: No symptoms Hematologic/Lymphatic: Reports: No symptoms All Other Systems: Reviewed and Negative Past Medical History - Past Medical History Previously Healthy: Yes Endocrine: Reports: None Cardiovascular: Reports: None Respiratory: Reports: None Hematological: Reports: None Gastrointestinal: Reports: None Genitourinary: Reports: None Neuro/Psych: Reports: None, Other Musculoskeletal: Reports: None Cancer: Reports: None Last Menstrual Period: 36 weeks - Surgical History General Surgical History: Reports: None - Family History Family History: Reports: None - Social History Smoking Status: Former smoker Hx Substance Use: No Alcohol Screening: None - Immunizations Tetanus Shot up to Date: Yes Physical Exam - Physical Exam Appearance: Well-appearing, No pain distress, Well-nourished Eyes: ZACKARY, EOMI, Conjunctiva clear ENT: Ears normal, Nose normal, Oropharynx normal Respiratory: Airway patent, Breath sounds clear, Breath sounds equal, Respirations nonlabored Cardiovascular: RRR, Pulses normal, No rub, No murmur GI/: Soft, Nontender, No masses, Bowel sounds normal, No Organomegaly Musculoskeletal: Normal strength, ROM intact, No edema, No calf tenderness Skin: Warm, Dry, Normal color Neurological: Sensation intact, Motor intact, Reflexes intact, Cranial nerves intact, Alert, Oriented Psychiatric: Affect appropriate, Mood appropriate Critical Care Note - Critical Care Note Total Time (mins): 0 Course - Course Vital Signs: Temp Pulse Resp BP Pulse Ox 05/17/17 13:15 97.6 F 93 H 19 122/89 96 Departure - Departure Time of Disposition: 13:30 (present jose luis at d/c ) Disposition: HOME SELF-CARE Discharge Problem: Backache Instructions: Back Pain (ED) Condition: Good Pt referred to PMD for follow-up: Yes Additional Instructions: Please call your Family Physician as soon as possible to schedule a follow-up appointment. Prescriptions: Hydrocodone/Acetaminophen [Chrisman 5-325 Tablet] 1 each PO Q6HR PRN #3 tablet PRN Reason: PAIN Allergies/Adverse Reactions: Allergies Penicillins Adverse Reaction (Verified 05/17/17 13:13) Swelling Home Medications: Ambulatory Orders Hydrocodone/Acetaminophen [Chrisman 5-325 Tablet] 1 each PO Q6HR PRN #3 tablet 04/28 Metoclopramide HCl 10 PRN 05/17/17
== END 2017-05-17 13:34 | disposition home or self-care (01) ==
LOC: ED 13:10
DX: M54.9 Dorsalgia, unspecified (principal); Z33.1 Pregnant state, incidental
CPT/HCPCS: 99282

== ENCOUNTER 2017-06-06 23:25 | Emergency (ER) ==
[2017-06-06 23:34] VITALS: BP 137/79; TEMP 99.8; BMI 23.5
--- NOTE | 2017-06-06 23:52 | ED.PDOC ---
General ED Provider: Dr. MAVIS RODRIGUEZ Chief Complaint: Non-specific Complaint Stated Complaint: Patient is a 31 year old with a recent history of vaginal delivery with tear. She states they didnt sew her up and is in a lot of pain. Denies any vaginal bleeding. Time Seen by Physician: 23:50 Mode of Arrival: Walk-In Information Source: Patient Exam Limitations: No limitations [facility] Documentation Reviewed and Agree: Yes Complaint Exam - Complaint/Exam Patient Complains of: Reports: Pain Onset/Duration: 2 days ago Symptoms Are: Still present Timing: Constant Initial Severity: Severe Current Severity: Severe Location of Pain: Reports: Diffuse Character: Reports: Sharp, Burning, Tearing Aggravating: Reports: Movement Associated Signs and Symptoms: Denies: Nausea, Vomiting, Decreased urine output , Increased urine frequency, Decreased activity, Bubble bath use Ectopic Risk Factors: Reports: None Ovarian Torsion Risk Factors: Reports: None Surgical Obstruction Risk Factors: Reports: None RH Status: Unknown Vulva Exam: Present: Laceration (at the base of the vagina, healing but tender to palpation. ) Rectal Exam: Present: External hemorrhoids (Thrombosed.), Tenderness Review of Systems - Review Of Systems Constitutional: Reports: No symptoms Eyes: Reports: No symptoms Ears, Nose, Mouth, Throat: Reports: No symptoms Respiratory: Reports: No symptoms Cardiac: Reports: No symptoms GI: Reports: Other (Thrombosed hemorroids. ) : Reports: No symptoms Musculoskeletal: Reports: No symptoms Skin: Reports: No symptoms Neurological: Reports: No symptoms Endocrine: Reports: No symptoms Hematologic/Lymphatic: Reports: No symptoms All Other Systems: Reviewed and Negative Past Medical History - Past Medical History Previously Healthy: Yes Endocrine: Reports: None Cardiovascular: Reports: None Respiratory: Reports: None Hematological: Reports: None Gastrointestinal: Reports: None Genitourinary: Reports: None Neuro/Psych: Reports: None, Other Musculoskeletal: Reports: None Cancer: Reports: None Last Menstrual Period: VAGINAL DELIVERY 2 DAYS AGO - Surgical History General Surgical History: Reports: None - Family History Family History: Reports: None - Social History Smoking Status: Former smoker Hx Substance Use: No Alcohol Screening: None - Immunizations Tetanus Shot up to Date: Yes Physical Exam - Physical Exam Appearance: Ill-appearing Ill-appearing: Mild Pain Distress: Severe Neck: Supple Respiratory: Airway patent, Breath sounds clear, Breath sounds equal, Respirations nonlabored Cardiovascular: RRR, Pulses normal, No rub, No murmur GI/: Soft, Nontender, No masses, Bowel sounds normal, No Organomegaly Musculoskeletal: Normal strength, ROM intact, No edema, No calf tenderness Skin: Warm, Dry, Normal color Psychiatric: Anxious Critical Care Note - Critical Care Note Total Time (mins): 0 Course - Course Orders, Labs, Meds: Orders Category Date Time Status Hydrocortisone Acetate [Anucort-Hc] MEDS 06/07/17 00:01 Discontinued 1 supp RC ONCE STA Meperidine HCl/Pf [Demerol 50 mg/ml Syringe] MEDS 06/07/17 00:01 Discontinued 50 mg IM ONCE STA Promethazine HCl [Phenergan 25 mg/ml Vial] MEDS 06/07/17 00:01 Discontinued 25 mg IM ONCE STA Medications Discontinued Medications Generic Name Dose Route Start Last Admin Trade Name Freq PRN Reason Stop Dose Admin Hydrocortisone Acetate 1 supp 06/07/17 00:01 06/07/17 00:34 Anucort-Hc RC 06/07/17 00:02 1 supp ONCE STA Administration Meperidine HCl 50 mg 06/07/17 00:01 06/07/17 00:20 Demerol 50 Mg/Ml Syringe IM 06/07/17 00:02 50 mg ONCE STA Administration Promethazine HCl 25 mg 06/07/17 00:01 06/07/17 00:20 Phenergan 25 Mg/Ml Vial IM 06/07/17 00:02 25 mg ONCE STA Administration Vital Signs: Temp Pulse Resp BP Pulse Ox 06/06/17 23:28 99.8 F H 90 18 137/79 97 Departure - Departure Time of Disposition: 00:03 Disposition: HOME SELF-CARE Discharge Problem: Acute hemorrhoid, Episiotomy pain Instructions: Hemorrhoids (ED), Vaginitis (ED) Condition: Fair Pt referred to PMD for follow-up: Yes Additional Instructions: Follow up with your OBGYN doctor in the morning for evaluation and treatment. Prescriptions: Hydrocodone/Acetaminophen [[place] 5-325 Tablet] 1 tab PO Q6HR PRN #20 tablet PRN Reason: PAIN Hydrocortisone Acetate [Anusol-Hc] 25 mg RC TID PRN #20 supp.rect PRN Reason: Rectal Pain Sennosides [Senna] 8.6 mg PO BID #60 tablet Allergies/Adverse Reactions: Allergies Penicillins Adverse Reaction (Verified 05/17/17 13:13) Swelling Home Medications: Ambulatory Orders Hydrocodone/Acetaminophen [[place] 5-325 Tablet] 1 each PO Q6HR PRN #3 tablet 04/28 Metoclopramide HCl 10 PRN 05/17/17 Hydrocodone/Acetaminophen [[place] 5-325 Tablet] 1 tab PO Q6HR PRN #20 tablet Hydrocortisone Acetate [Anusol-Hc] 25 mg RC TID PRN #20 supp.rect 06/07/17 Sennosides [Senna] 8.6 mg PO BID #60 tablet 06/07/17 Disposition Discussed With: Patient, Family
[2017-06-07] MEDS ORDERED: ANUCORT-HC RC STA (00:01)
[2017-06-07] MEDS ORDERED: PHENERGAN 25 MG/ML VIAL IM STA (00:01)
[2017-06-07] MEDS ORDERED: DEMEROL 50 MG/ML SYRINGE IM STA (00:01)
== END 2017-06-07 01:20 | disposition home or self-care (01) ==
LOC: ED 23:25
DX: K64.9 Unspecified hemorrhoids (principal); O70.9 Perineal laceration during delivery, unspecified; G89.18 Other acute postprocedural pain
CPT/HCPCS: 96372; 99282

== ENCOUNTER 2017-12-26 17:12 | Emergency (ER) ==
[2017-12-26 17:19] VITALS: BP 119/74; TEMP 99; BMI 22.5
[2017-12-26] MEDS ORDERED: TORADOL IM STA (17:49)
--- NOTE | 2017-12-26 17:52 | ED.PDOC ---
General ED Provider: Dr. JELANI TURCIOS Chief Complaint: Vaginal Bleeding Stated Complaint: VAGINAL BLEEDING Time Seen by Physician: 17:30 (NEGATIVE TRUAMA) Mode of Arrival: Walk-In Information Source: Patient Exam Limitations: No limitations [facility] Referred to ED by: Other (ISH BECKER RN PRESENT) Nursing and Triage Documentation Reviewed and Agree: Yes Reviewed sepsis parameters & appropriate labs ordered?: Yes (MAY AND PT'S MOTHER IN THE ROOM AT ALL TIMES ) System Inflammatory Response Syndrome: Not Applicable Sepsis Protocol: For patient's 13 years and over: Temp is 96.8 and below OR 101 and greater Pulse >90 BPM Resp >20/minute Acutely Altered Mental Status Are patient's symptoms suggestive of a new infection, such as: -Pneumonia -Skin, Soft Tissue -Endocarditis -UTI -Bone, Joint Infection -Implantable Device -Acute Abdominal Infection -Wound Infection -Meningitis -Blood Stream Catheter Infection -Unknown System Inflammatory Response Syndrome: Not Applicable Complaint Exam - UTI Female Complaint/Exam : 2 Para: 2 - Complaint/Exam Patient Complains of: Reports: Pain (VAGINAL BLEED . X 2 MONTHS OFF AND ON ON DEPO) Onset/Duration: 2 MONTHS SINCE DELIVERY OF HER CHILD Symptoms Are: Still present Timing: Intermittent Episodes of Voiding Over Last 12 Hours: 0 Initial Severity: Mild Current Severity: Mild Location of Pain: Reports: Vulva, Suprapubic Alleviating: Reports: None Associated Signs and Symptoms: Reports: Vaginal bleeding. Denies: Diaphoresis, Back pain, Fever, Hematuria, Dysuria, Constipation, Blood in stool, Rectal pain , Appetite change, Nausea, Vomiting, Decreased urine output, Increased urine frequency, Increased thirst, Decreased activity, Lethargy, Abdominal Pain, Bubble bath use, Vaginal discharge, Genital swelling, Genital blisters, Retained foreign body Related History: Reports: Similar episode Ectopic Risk Factors: Reports: Maternal age >30 Ovarian Torsion Risk Factors: Reports: Reproductive age Surgical Obstruction Risk Factors: Reports: None RH Status: Unknown Related Surgical History: Reports: None Abdominal Findings: Present: None (NO PELVIC EXAM DONE) Differential Diagnoses: Endometriosis Review of Systems - Review Of Systems Constitutional: Reports: No symptoms Eyes: Reports: No symptoms Ears, Nose, Mouth, Throat: Reports: No symptoms Respiratory: Reports: No symptoms Cardiac: Reports: No symptoms GI: Reports: No symptoms : Reports: Other (VAGINAL BLEEDING) Musculoskeletal: Reports: No symptoms Skin: Reports: No symptoms Neurological: Reports: No symptoms Endocrine: Reports: No symptoms Hematologic/Lymphatic: Reports: No symptoms All Other Systems: Reviewed and Negative Past Medical History - Past Medical History Previously Healthy: Yes Endocrine: Reports: None Cardiovascular: Reports: None Respiratory: Reports: None Hematological: Reports: None Gastrointestinal: Reports: None Genitourinary: Reports: None Neuro/Psych: Reports: None, Other Musculoskeletal: Reports: None Cancer: Reports: None Last Menstrual Period: now - Surgical History General Surgical History: Reports: None - Family History Family History: Reports: None - Social History Smoking Status: Former smoker Hx Substance Use: No Alcohol Screening: None Physical Exam - Physical Exam Appearance: Well-appearing, No pain distress, Well-nourished Eyes: ZACKARY, EOMI, Conjunctiva clear ENT: Ears normal, Nose normal, Oropharynx normal Respiratory: Airway patent, Breath sounds clear, Breath sounds equal, Respirations nonlabored Cardiovascular: RRR, Pulses normal, No rub, No murmur GI/: Soft, Nontender, No masses, Bowel sounds normal, No Organomegaly Musculoskeletal: Normal strength, ROM intact, No edema, No calf tenderness Skin: Warm, Dry, Normal color Neurological: Sensation intact, Motor intact, Reflexes intact, Cranial nerves intact, Alert, Oriented Psychiatric: Affect appropriate, Mood appropriate Critical Care Note - Critical Care Note Total Time (mins): 0 Course - Course Hematology/Chemistry: 12/26/17 17:39 Orders, Labs, Meds: Lab Review 12/26/17 17:39 WBC 6.30 RBC 3.39 L Hgb 10.5 L Hct 30.1 L MCV 88.8 MCH 31.0 MCHC 34.9 RDW Coeff of Jeffrey 14.1 Plt Count 329 Immature Gran % (Auto) 0.2 Neut % (Auto) 33.3 Lymph % (Auto) 44.4 Cottle % (Auto) 12.1 H Eos % (Auto) 9.5 H Baso % (Auto) 0.5 Immature Gran # (Auto) 0.0 Neut # 2.1 Lymph # 2.8 Cottle # 0.8 Eos # 0.6 Baso # 0.0 Orders Category Date Time Status CBC W/ AUTO DIFF Stat LAB 12/26/17 17:39 Completed PARTIAL THROMBOPLASTIN TIME Stat LAB 12/26/17 17:39 Received SERUM TEST [SERUM ] Stat LAB 12/26/17 17:39 Received PT WITH INR Stat LAB 12/26/17 17:39 Received Ketorolac Tromethamine [Toradol] MEDS 12/26/17 17:49 Stat 60 mg IM ONCE STA Vital Signs: Temp Pulse Resp BP Pulse Ox 12/26/17 17:13 99 F 101 H 20 119/74 97 Departure - Departure Time of Disposition: 19:00 (WITH MAY PRESENT STRESSED AQUATIC INSTRUCTOR FOLLOW UP) Disposition: HOME SELF-CARE Discharge Problem: Bleeding from vagina Instructions: Dysfunctional Uterine Bleeding (ED) Condition: Good Pt referred to PMD for follow-up: Yes IPMP verified?: Yes Additional Instructions: Please call your Family Physician as soon as possible to schedule a follow-up appointment. Allergies/Adverse Reactions: Allergies Penicillins Adverse Reaction (Verified 12/26/17 17:21) Swelling Home Medications: Ambulatory Orders Metoclopramide HCl 10 mg PO BID 05/17/17
== END 2017-12-26 18:30 | disposition home or self-care (01) ==
LOC: ED 17:12
DX: N93.8 Other specified abnormal uterine and vaginal bleeding (principal)
CPT/HCPCS: 36415; 84703; 85025; 85610; 85730; 96372; 99283

== ENCOUNTER 2017-12-28 16:16 | Outpatient (CLI) ==
--- NOTE | 2017-12-28 17:04 | US ---
EXAM: Transvaginal pelvic ultrasound. History: Excessive and frequent menstruation. Comparison: None available. Technique: Multiple sonographic images through the pelvis were obtained. Color duplex Doppler was u sed to interrogate vascular flow. Findings: The uterus measures 8.0 cm x 4.6 cm x 5.0 cm. Endometrium measures 0.6 cm in thickness. Small amoun t of fluid in the left adnexa and adjacent to the left side of the uterus. There are prominent periu terine vessels. Both ovaries are normal in size. Blood flow is documented within each ovary. 1.8 cm dominant follic le within the right ovary. No adnexal masses. Impression: 1. Prominent periuterine vasculature is a nonspecific finding that has been described with pelvic co ngestion syndrome. 2. 1.8 cm dominant follicle within the right ovary. 3. Small amount of fluid in the left adnexa and adjacent to the left side of the uterus.
== END 2017-12-28 16:17 | disposition home or self-care (01) ==
LOC: RAD 16:16
PROVIDERS: ATTEND Family Medicine
DX: R53.81 Other malaise (principal); N92.1 Excessive and frequent menstruation with irregular cycle; F50.9 Eating disorder, unspecified; F53 Mental and behavioral disorders associated with the puerperium, not elsewhere classified; Z72.0 Tobacco use
CPT/HCPCS: 36415; 80053; 84443

== ENCOUNTER 2017-12-28 18:06 | Outpatient (CLI) | END 2017-12-28 18:07 | disposition home or self-care (01) | LOC: LAB 18:06 | PROVIDERS: ATTEND Family Medicine | DX: N94.9 Unspecified condition associated with female genital organs and menstrual cycle (principal); N93.9 Abnormal uterine and vaginal bleeding, unspecified | CPT/HCPCS: 87800 ==

== ENCOUNTER 2018-01-27 22:44 | Outpatient (CLI) ==
[2018-01-27 23:16] VITALS: BMI 21.9
== END 2018-01-27 22:45 | disposition critical access hospital (66) ==
LOC: AMBL 22:44
PROVIDERS: ATTEND Family Medicine
DX: F41.0 Panic disorder [episodic paroxysmal anxiety] (principal); F12.90 Cannabis use, unspecified, uncomplicated

== ENCOUNTER 2018-01-27 23:10 | Emergency (ER) ==
[2018-01-27] MEDS ORDERED: ATIVAN IVP STA ×2 (23:14→23:25)
[2018-01-27] MEDS ORDERED: DUONEB NEB STA (23:14)
[2018-01-27] MEDS ORDERED: SODIUM CHLORIDE 1,000 ML IV STA (23:15)
[2018-01-27 23:16] VITALS: BP 89/74; TEMP 98; BMI 21.9
[2018-01-27] MEDS ORDERED: ATIVAN ONE (23:16)
[2018-01-27] MEDS ORDERED: GEODON IM STA (23:48)
[2018-01-27] MEDS ORDERED: PROTONIX IV IVP STA (23:54)
[2018-01-27] MEDS ORDERED: PEPCID IVP STA (23:54)
--- NOTE | 2018-01-28 00:01 | DI ---
EXAM: AP single view of the chest. HISTORY: Cough. FINDINGS: The bones are unremarkable. The cardiac silhouette and pulmonary vasculature are within no rmal limits. The costophrenic angles are clear. No infiltrate or consolidation. Impression: No acute cardiopulmonary disease.
--- NOTE | 2018-01-28 06:05 | ED.PDOC ---
General ED Provider: Dr. VEENA SEPULVEDA-ER Chief Complaint: Cough Stated Complaint: she smoked some pot and then stated she couldnt breathe Time Seen by Physician: 23:15 Mode of Arrival: Ambulance Information Source: Patient, Family, EMT Exam Limitations: No limitations Primary Care Provider: [facility] Nursing and Triage Documentation Reviewed and Agree: Yes Reviewed sepsis parameters & appropriate labs ordered?: Yes System Inflammatory Response Syndrome: Not Applicable Sepsis Protocol: For patient's 13 years and over: Temp is 96.8 and below OR 101 and greater Pulse >90 BPM Resp >20/minute Acutely Altered Mental Status Are patient's symptoms suggestive of a new infection, such as: -Pneumonia -Skin, Soft Tissue -Endocarditis -UTI -Bone, Joint Infection -Implantable Device -Acute Abdominal Infection -Wound Infection -Meningitis -Blood Stream Catheter Infection -Unknown Review of Systems - Review Of Systems Constitutional: Reports: No symptoms Eyes: Reports: No symptoms Ears, Nose, Mouth, Throat: Reports: No symptoms Respiratory: Reports: Cough, Short of air Cardiac: Reports: No symptoms GI: Reports: No symptoms : Reports: No symptoms Musculoskeletal: Reports: No symptoms Skin: Reports: No symptoms Neurological: Reports: No symptoms Endocrine: Reports: No symptoms Hematologic/Lymphatic: Reports: No symptoms All Other Systems: Reviewed and Negative Past Medical History - Past Medical History Previously Healthy: Yes Endocrine: Reports: None Cardiovascular: Reports: None Respiratory: Reports: None Hematological: Reports: None Gastrointestinal: Reports: None Genitourinary: Reports: None Neuro/Psych: Reports: None, Other Musculoskeletal: Reports: None Cancer: Reports: None Last Menstrual Period: [place] - Surgical History General Surgical History: Reports: None - Family History Family History: Reports: None - Social History Smoking Status: Former smoker Hx Substance Use: Yes (MARIJUANA) Alcohol Screening: Occasionally - Immunizations Tetanus Shot up to Date: Yes Physical Exam - Physical Exam Appearance: Well-appearing, No pain distress, Well-nourished Eyes: ZACKARY, EOMI, Conjunctiva clear ENT: Ears normal, Nose normal, Oropharynx normal Neck: Supple Respiratory: Airway patent, Breath sounds clear, Breath sounds equal, Respirations nonlabored Cardiovascular: RRR, Pulses normal, No rub, No murmur GI/: Soft, Nontender, No masses, Bowel sounds normal, No Organomegaly Musculoskeletal: Normal strength, ROM intact, No edema, No calf tenderness Skin: Warm, Dry, Normal color Neurological: Sensation intact, Motor intact, Reflexes intact, Cranial nerves intact, Alert, Oriented Psychiatric: Anxious Interpretation - Radiology Interpretation Radiology Interpretation By: Radiologist Radiology Results: Positive Exam Interpreted: CT Scan - EKG Interpretation Time of EKG #1: 07:33 Rate: Normal Rhythm: Sinus Ectopy: None Gerton: NL ST Segment: Normal Re-Evaluation - Re-Evaluation Time of Re-Evaluation: 07:06 Status: Improved Vital Signs Stable: Yes Pain Level: 0 Appearance: NAD Lungs: Clear Skin: Warm and Dry Neuro: Alert and Oriented X3 CV: RRR Additional Comments: she admitted she didnt have the kids this weekend and decided to "republican" Critical Care Note - Critical Care Note Total Time (mins): 0 Course - Course Hematology/Chemistry: 01/27/18 23:35 01/27/18 23:35 Orders, Labs, Meds: Lab Review 01/27/18 01/27/18 01/27/18 23:13 23:35 23:35 WBC 8.33 RBC 3.55 L Hgb 10.7 L Hct 29.8 L MCV 83.9 MCH 30.1 MCHC 35.9 H RDW Coeff of Jeffrey 13.4 Plt Count 304 Immature Gran % (Auto) 0.1 Neut % (Auto) 32.5 Lymph % (Auto) 50.2 H Rains % (Auto) 13.3 H Eos % (Auto) 3.5 Baso % (Auto) 0.4 Immature Gran # (Auto) 0.0 Neut # (Auto) 2.7 Lymph # (Auto) 4.2 H Rains # (Auto) 1.1 Eos # (Auto) 0.3 Baso # (Auto) 0.0 D-Dimer (Manual) Puncture Site Rr O2 Saturation 95.0 ABG pH 7.503 H* ABG pCO2 23.8 L ABG pO2 65.0 L ABG HCO3 18.7 L ABG Total CO2 19 L ABG Base Excess -4 L Genaro Test + O2 Delivery Device Nc Oxygen Liter Flow 2.00 FiO2 % 28.0 Sodium 140 Potassium 3.3 L Chloride 107 Carbon Dioxide 19 L Anion Gap 17.3 BUN 16 Creatinine 0.87 Estimated GFR (MDRD) 75.00 BUN/Creatinine Ratio 18.39 Glucose 80 Calcium 9.1 Total Bilirubin 0.8 AST 74 H ALT 79 H Alkaline Phosphatase 116 H Total Creatine Kinase CK-MB (CK-2) CK-MB (CK-2) % Troponin I Total Protein 7.9 Albumin 3.7 Globulin 4.2 Albumin/Globulin Ratio 0.88 Serum , Qual Urine Opiates Screen Ur Oxycodone Screen Urine Methadone Screen Ur Propoxyphene Screen Ur Barbiturates Screen U Tricyclic Antidepress Ur Phencyclidine Scrn Ur Amphetamine Screen U Methamphetamines Scrn U Benzodiazepines Scrn Urine Cocaine Screen U Cannabinoids Screen Influ A Molecular Assay Influ B Molecular Assay 01/27/18 01/27/18 01/28/18 23:35 23:35 01:20 WBC RBC Hgb Hct MCV MCH MCHC RDW Coeff of Jeffrey Plt Count Immature Gran % (Auto) Neut % (Auto) Lymph % (Auto) Rains % (Auto) Eos % (Auto) Baso % (Auto) Immature Gran # (Auto) Neut # (Auto) Lymph # (Auto) Rains # (Auto) Eos # (Auto) Baso # (Auto) D-Dimer (Manual) 943.84 Puncture Site O2 Saturation ABG pH ABG pCO2 ABG pO2 ABG HCO3 ABG Total CO2 ABG Base Excess Genaro Test O2 Delivery Device Oxygen Liter Flow FiO2 % Sodium Potassium Chloride Carbon Dioxide Anion Gap BUN Creatinine Estimated GFR (MDRD) BUN/Creatinine Ratio Glucose Calcium Total Bilirubin AST ALT Alkaline Phosphatase Total Creatine Kinase 388 CK-MB (CK-2) 5.1 H* CK-MB (CK-2) % 1.47734 Troponin I 0.0210 Total Protein Albumin Globulin Albumin/Globulin Ratio Serum , Qual Negative Urine Opiates Screen Ur Oxycodone Screen Urine Methadone Screen Ur Propoxyphene Screen Ur Barbiturates Screen U Tricyclic Antidepress Ur Phencyclidine Scrn Ur Amphetamine Screen U Methamphetamines Scrn U Benzodiazepines Scrn Urine Cocaine Screen U Cannabinoids Screen Influ A Molecular Assay Influ B Molecular Assay 01/28/18 01/28/18 01:20 06:25 WBC RBC Hgb Hct MCV MCH MCHC RDW Coeff of Jeffrey Plt Count Immature Gran % (Auto) Neut % (Auto) Lymph % (Auto) Rains % (Auto) Eos % (Auto) Baso % (Auto) Immature Gran # (Auto) Neut # (Auto) Lymph # (Auto) Rains # (Auto) Eos # (Auto) Baso # (Auto) D-Dimer (Manual) Puncture Site O2 Saturation ABG pH ABG pCO2 ABG pO2 ABG HCO3 ABG Total CO2 ABG Base Excess Genaro Test O2 Delivery Device Oxygen Liter Flow FiO2 % Sodium Potassium Chloride Carbon Dioxide Anion Gap BUN Creatinine Estimated GFR (MDRD) BUN/Creatinine Ratio Glucose Calcium Total Bilirubin AST ALT Alkaline Phosphatase Total Creatine Kinase CK-MB (CK-2) CK-MB (CK-2) % Troponin I Total Protein Albumin Globulin Albumin/Globulin Ratio Serum , Qual Urine Opiates Screen Negative Ur Oxycodone Screen Negative Urine Methadone Screen Negative Ur Propoxyphene Screen Negative Ur Barbiturates Screen Negative U Tricyclic Antidepress Negative Ur Phencyclidine Scrn Negative Ur Amphetamine Screen Positive U Methamphetamines Scrn Positive U Benzodiazepines Scrn Positive Urine Cocaine Screen Negative U Cannabinoids Screen Positive Influ A Molecular Assay Negative by naat Influ B Molecular Assay Negative by naat Orders Category Date Time Status ABG DRAW REQUEST Stat CARDIO 01/27/18 23:13 Completed EKG-(ED ONLY) Stat CARDIO 01/27/18 23:13 Completed NEBULIZER TREATMENT Stat CARDIO 01/27/18 23:14 Completed NPO REMINDER: IMAGING ONCE CARE 01/28/18 06:06 Completed Help Desk Internship [ED LOAN SUPERVISOR APPLIED] .ONCE EMERGENCY 01/27/18 23:14 Active IV [ED IV/MEDIPORT/POWERPORT] .ONCE EMERGENCY 01/27/18 23:14 Active ABG Stat LAB 01/27/18 23:13 Completed CBC W/ AUTO DIFF Stat LAB 01/27/18 23:35 Completed COMPREHENSIVE METABOLIC PANEL Stat LAB 01/27/18 23:35 Completed CREATINE KINASE Stat LAB 01/28/18 01:20 Completed D-DIMER Stat LAB 01/27/18 23:35 Completed FLU A/B MOLECULAR Stat LAB 01/28/18 01:20 Completed MOLECULAR GROUP A STREP Stat LAB 01/28/18 01:20 Completed SERUM Stat LAB 01/27/18 23:35 Completed TROPONIN I Stat LAB 01/28/18 01:20 Completed URINE DRUG SCREEN (RAPID FOR ED) [DRUG SCREEN, URINE, LAB 01/28/18 06:25 Completed RAPID] Stat 0.9 % Sodium Chloride [Saline Flush] MEDS 01/27/18 23:14 Active 1 syr IVF PRN PRN Famotidine Inj [Pepcid] MEDS 01/27/18 23:54 Discontinued 20 mg IVP ONCE STA Ipratropium/Albuterol Neb [Duoneb] MEDS 01/27/18 23:14 Discontinued 1 vial NEB ONCE STA Lorazepam Inj [Ativan] MEDS 01/27/18 23:14 Discontinued 1 mg IVP ONCE STA Lorazepam Inj [Ativan] MEDS 01/27/18 23:25 Discontinued 1 mg IVP ONCE STA Lorazepam Inj [Ativan] MEDS 01/27/18 23:16 Discontinued 2 mg .ROUTE .STK-MED ONE Pantoprazole Sodium [Protonix IV] MEDS 01/27/18 23:54 Discontinued 40 mg IVP ONCE STA Sodium Chloride 0.9% [Sodium Chloride] 1,000 ml MEDS 01/27/18 23:15 Discontinued IV 500 mls/hr Sodium Chloride 0.9% [Sodium Chloride] 1,000 ml MEDS 01/28/18 06:08 Discontinued IV BOLUS Sodium Chloride 0.9% [Sodium Chloride] 1,000 ml MEDS 01/28/18 06:22 Discontinued IV BOLUS Ziprasidone Mesylate [Geodon] MEDS 01/27/18 23:48 Discontinued 10 mg IM ONCE STA CT CHEST PE PROTOCOL Stat RADS 01/28/18 06:[address] HEAD W/O CONTRAST Stat RADS 01/28/18 06:06 Completed CXR [CHEST, 1V AP ONLY] Stat RADS 01/27/18 23:15 Completed Medications Generic Name Dose Route Start Last Admin Trade Name Freq PRN Reason Stop Dose Admin Sodium Chloride 1 syr 01/27/18 23:14 01/27/18 23:37 Saline Flush IVF 1 syr PRN PRN Administration To flush IV Discontinued Medications Generic Name Dose Route Start Last Admin Trade Name Freq PRN Reason Stop Dose Admin Albuterol/Ipratropium 1 vial 01/27/18 23:14 01/27/18 23:10 Duoneb NEB 01/27/18 23:15 1 vial ONCE STA Administration Famotidine 20 mg 01/27/18 23:54 01/28/18 00:18 Pepcid IVP 01/27/18 23:55 20 mg ONCE STA Administration Sodium Chloride 1,000 mls @ 500 mls/hr 01/27/18 23:15 01/27/18 23:37 Sodium Chloride IV 01/28/18 01:14 500 mls/hr .Q2H STA Administration Sodium Chloride 1,000 mls @ 1,000 mls/hr 01/28/18 06:08 01/28/18 06:48 Sodium Chloride IV 01/28/18 07:07 Not Given BOLUS STA Sodium Chloride 1,000 mls @ 1,000 mls/hr 01/28/18 06:22 01/28/18 06:23 Sodium Chloride IV 01/28/18 07:21 1,000 mls/hr BOLUS STA Administration Lorazepam 1 mg 01/27/18 23:14 01/27/18 23:23 Ativan IVP 01/27/18 23:15 1 mg ONCE STA Administration Lorazepam 1 mg 01/27/18 23:25 01/27/18 23:37 Ativan IVP 01/27/18 23:26 1 mg ONCE STA Administration Pantoprazole Sodium 40 mg 01/27/18 23:54 01/28/18 00:18 Protonix Iv IVP 01/27/18 23:55 40 mg ONCE STA Administration Ziprasidone 10 mg 01/27/18 23:48 01/28/18 00:01 Geodon IM 01/27/18 23:49 10 mg ONCE STA Administration Vital Signs: Temp Pulse Resp BP Pulse Ox 01/27/18 23:12 98 F 132 H 26 H 89/74 L 97 Departure - Departure Time of Disposition: 08:43 Disposition: HOME SELF-CARE Discharge Problem: Polysubstance abuse, Anxiety, Pneumonia, Lymphadenopathy, hilar Instructions: Generalized Anxiety Disorder (ED), Cannabis Abuse (ED), Methamphetamine Abuse (ED) Condition: Good Pt referred to PMD for follow-up: Yes IPMP verified?: No Additional Instructions: f/u pmd--consider seeing rehab --biaxin 500mg bid x 10 days--f/u in clinic in 2- [address] scan and follow up lymph nodes Allergies/Adverse Reactions: Allergies Penicillins Adverse Reaction (Verified 12/26/17 17:21) Swelling Disposition Discussed With: Patient, Family Discharge Problem: Pneumonia Qualifiers: Pneumonia type: due to unspecified organism Laterality: bilateral Lung location : unspecified part of lung Qualified Code(s): J18.9 - Pneumonia, unspecified organism
[2018-01-28] MEDS ORDERED: SODIUM CHLORIDE 1,000 ML IV STA ×2 (06:08→06:22)
--- NOTE | 2018-01-28 07:55 | CT ---
EXAM: CT head without contrast 01/28/2018. Sagittal and coronal reformatted images obtained HISTORY: Altered mental status COMPARISON: 04/02/2016 FINDINGS: There is no evidence of intracranial hemorrhage. The midline is maintained. There is no h ydrocephalus. Generalized atrophy and chronic small vessel ischemic changes. Complete opacification of the right maxillary sinus. Mucosal thickening of the ethmoidal sinuses. The findings consistent with sinusitis. No cerebellar tonsillar ectopia. Evaluation of the calvarium shows no fracture. Th e mastoid air cells are normally pneumatized. IMPRESSION: No acute intracranial abnormality. Atrophy and small vessel ischemic change. Sinusitis.
--- NOTE | 2018-01-28 08:01 | CT ---
EXAM: CT Angiogram Chest. HISTORY: Dyspnea. COMPARISON: Chest radiograph 1 day prior. TECHNIQUE: Multiple axial images of the chest were obtained following intravenous administration of 125 mL of Omnipaque 350, low osmolar. Images were reformatted in the sagittal and coronal plane. 3- D and maximum intensity projection reformatted images were created on an independent workstation. FINDINGS: Extensive mediastinal and hilar lymphadenopathy noted. The largest measurable lymph nodes in the right hilum measuring 2.1 cm on axial image 39, left hilum measures 1.9 cm on axial image 40 and mediastinum measuring 2.2 cm in the subcarinal region on axial image 46. Heart size is normal. No pericardial effusion identified. No pulmonary arterial filling defects are seen. There is moderate dependent subsegmental atelectasis , predominately in the lower lobes. Scattered nodular densities are present in both lungs, predomina tely the upper lobes. No pleural effusion or pneumothorax identified. Limited images of the upper abdomen demonstrate no acute abnormality. The osseous structures are wit hin normal limits for the patient's age. IMPRESSION: 1. No evidence for pulmonary embolus. 2. Upper lobe predominant nodular densities most likely due to infectious process, including atypical causes. Moderate subsegmental atelectasis in both lower lobes. 3. Extensive mediastinal and bilateral hilar lymphadenopathy. Consider atypical infection (tubercul osis/fungal infection), sarcoidosis, and lymphoma among other processes.
== END 2018-01-28 09:29 | disposition home or self-care (01) ==
LOC: ED 23:10
DX: J18.9 Pneumonia, unspecified organism (principal); F41.9 Anxiety disorder, unspecified; R59.1 Generalized enlarged lymph nodes; F12.10 Cannabis abuse, uncomplicated; F15.10 Other stimulant abuse, uncomplicated
CPT/HCPCS: 36415; 80053; 80306; 82550; 82553; 82803; 84484; 84703; 85025; 85379; 87502; 87651; 93005; 93010; 94640; 96360; 96361; 96365; 96372; 96375; 99284

== ENCOUNTER 2018-01-28 18:07 | Outpatient (CLI) ==
[2018-01-27 23:16] VITALS: BMI 21.9
== END 2018-01-28 18:08 | disposition home or self-care (01) ==
LOC: FCC-LAB 18:07
PROVIDERS: ATTEND Family Medicine
DX: R93.8 Abnormal findings on diagnostic imaging of other specified body structures (principal); J18.9 Pneumonia, unspecified organism; F19.10 Other psychoactive substance abuse, uncomplicated
CPT/HCPCS: 36415; 86038; 87449

== ENCOUNTER 2018-01-30 19:43 | Outpatient (CLI) | END 2018-01-30 19:44 | disposition home or self-care (01) | LOC: LAB 19:43 | PROVIDERS: ATTEND Family Medicine | DX: R93.8 Abnormal findings on diagnostic imaging of other specified body structures (principal); J18.9 Pneumonia, unspecified organism; F19.10 Other psychoactive substance abuse, uncomplicated | CPT/HCPCS: 36415; 86701 ==

== ENCOUNTER 2018-04-14 13:34 | Emergency (ER) | payer OTHER ==
[2018-04-14 13:38] VITALS: BP 120/79; TEMP 98.5; BMI 19.8
--- NOTE | 2018-04-14 13:53 | ED.PDOC ---
General ED Provider: Dr. VEENA AVELAR Chief Complaint: Tooth Problem Stated Complaint: Severe jaw pain. Has multipe dental problems, multiple caries and fracutred teeth. Her small child pumped her jaw resulted in worsening her conditon and partially disrupting lt frontal incisor. Tenderness mandible and pharyngeal region , no masses noted Time Seen by Physician: 13:45 Mode of Arrival: Walk-In Information Source: Patient Exam Limitations: No limitations Primary Care Provider[facility] Nursing and Triage Documentation Reviewed and Agree: Yes Reviewed sepsis parameters & appropriate labs ordered?: Yes System Inflammatory Response Syndrome: Not Applicable Sepsis Protocol: For patient's 13 years and over: Temp is 96.8 and below OR 101 and greater Pulse >90 BPM Resp >20/minute Acutely Altered Mental Status Are patient's symptoms suggestive of a new infection, such as: -Pneumonia -Skin, Soft Tissue -Endocarditis -UTI -Bone, Joint Infection -Implantable Device -Acute Abdominal Infection -Wound Infection -Meningitis -Blood Stream Catheter Infection -Unknown EENT Complaint Exam - Dental/Oral Complaint/Exam Mechanism of Injury: Trauma Onset/Duration: 2 days Symptoms Are: Still present Timing: Constant Initial Severity: Moderate Current Severity: Moderate Location: Lower gum moapa Character: Reports: Aching, Throbbing Aggravating: Reports: Chewing (and touch) Alleviating: Reports: None Associated Signs and Symptoms: Reports: Swelling. Denies: Fever, Foul odor, Foul taste in mouth Related History: Reports: Similar episode Cardiac Risk Factors: Reports: None Dental/Oral Surgical History: Reports: None Tooth Findings: Present: Percussion tenderness, Gross decay, Gross caries, Dental fracture, Abcess Cervical Lymphadenopathy Present: No Facial Swelling Present: No Bleeding Present: No Septal Hematoma: No Foreign Body Present: No Dysphagia Present: No Drooling Present: No Asymmetrical Tonsillar Swelling Present: No Uvula Midline: No Yola-tonsillar Fluctuence: No Trismus Present: No Palatal Petechiae Present: No Scarlatinaform Rash Present: No Review of Systems - Review Of Systems Constitutional: Reports: No symptoms Eyes: Reports: No symptoms Ears, Nose, Mouth, Throat: Reports: Loose teeth Respiratory: Reports: No symptoms Cardiac: Reports: No symptoms GI: Reports: No symptoms : Reports: No symptoms Musculoskeletal: Reports: No symptoms Skin: Reports: No symptoms Neurological: Reports: No symptoms Endocrine: Reports: No symptoms Hematologic/Lymphatic: Reports: No symptoms All Other Systems: Reviewed and Negative Past Medical History - Past Medical History Previously Healthy: Yes Endocrine: Reports: None Cardiovascular: Reports: None Respiratory: Reports: None Hematological: Reports: None Gastrointestinal: Reports: None Genitourinary: Reports: None Neuro/Psych: Reports: None, Other Musculoskeletal: Reports: None Cancer: Reports: None Last Menstrual Period: end of march - Surgical History General Surgical History: Reports: None - Family History Family History: Reports: None - Social History Smoking Status: Former smoker Hx Substance Use: Yes (MARIJUANA) Alcohol Screening: Occasionally Physical Exam - Physical Exam Appearance: Well-appearing, No pain distress, Well-nourished Eyes: ZACKARY, EOMI, Conjunctiva clear ENT: Ears normal, Nose normal, Oropharynx normal Respiratory: Airway patent, Breath sounds clear, Breath sounds equal, Respirations nonlabored Cardiovascular: RRR, Pulses normal, No rub, No murmur GI/: Soft, Nontender, No masses, Bowel sounds normal, No Organomegaly Musculoskeletal: Normal strength, ROM intact, No edema, No calf tenderness Skin: Warm, Dry, Normal color Neurological: Sensation intact, Motor intact, Reflexes intact, Cranial nerves intact, Alert, Oriented Psychiatric: Affect appropriate, Mood appropriate Critical Care Note - Critical Care Note Total Time (mins): 0 Course - Course Hematology/Chemistry: 04/14/18 14:25 04/14/18 14:25 Vital Signs: Temp Pulse Resp BP Pulse Ox 04/14/18 13:35 98.5 F 86 20 120/79 99 Departure - Departure Time of Disposition: 16:00 Disposition: PLACED OBSERVATION Discharge Problem: Pain due to dental caries, Dental caries, Acute periodontitis Condition: Good Pt referred to PMD for follow-up: Yes IPMP verified?: No Additional Instructions: Rinse mouth twice daily-warm salt water Take analgesics for pain Take antibiotics See Dentist in next 5-7 days Prescriptions: Clindamycin HCl 150 mg PO Q6HR #20 capsule Hydrocodone/Acetaminophen [Sodus 5-325 Tablet] 1 each PO Q6HR PRN #10 tablet PRN Reason: Severe dental or ear pain Allergies/Adverse Reactions: Allergies Penicillins Adverse Reaction (Verified 04/14/18 13:38) Swelling Home Medications: Ambulatory Orders Clindamycin HCl 150 mg PO Q6HR #20 capsule 04/14/18 Hydrocodone/Acetaminophen [Sodus 5-325 Tablet] 1 each PO Q6HR PRN #10 tablet 01/27
[2018-04-14] MEDS ORDERED: NORCO 7.5-325 PO STA (13:56)
[2018-04-14] MEDS ORDERED: CLEOCIN PO STA (13:57)
--- NOTE | 2018-04-14 14:42 | CT ---
Exam: CT maxillofacial bones without intravenous contrast. Comparison: 08/11/2016. CT brain performed 01/28/2018. Reason for exam: Dental abscess multiple caries. FINDINGS: No displaced facial fracture is seen. There is mucosal thickening with air fluid levels in the ethmoid sinus. There is complete opacificat ion of the right maxillary sinus. The left maxillary sinus and sphenoid sinuses appear normally pneu matized. No air-fluid levels are seen in the mastoid air cells. Multiple dental caries are seen within the mandible and maxilla involving a majority of the incisors and molars. Image interpretation is limited by the lack of intravenous contrast administration. No discrete fluid collection is seen. No scan thickening or discrete abscess formation. The temporal mandibular joint spaces appear symmetric. The orbital rims are intact. The zygomatic arches appear unremarkable. The partially imaged cervical spine appears grossly unremarkable. Small foci of air in the soft tissues of the left posterior pharynx. Impression: 1. Multiple dental caries are seen throughout the left and right mandible and maxilla involving a feliz ority of the mid and posterior teeth. No discrete fluid collection or abscess formation is seen. Rosalie ge interpretation is limited by the lack of intravenous contrast administration. 2. Nonspecific foci of air in the left posterior pharyngeal soft tissues may represent soft tissue f olds, but may also represent a small developing phlegmon as seen on axial image number 20. If clinica l concern exists, repeat imaging may be performed. 3. Complete opacification of the right maxillary sinus with air fluid levels in the ethmoid sinuses. Imaging findings are consistent with sinusitis and may be reactive from the multiple dental caries.
--- NOTE | 2018-04-14 15:49 | CT ---
Exam: CT vascular facial bones with intravenous contrast. Comparison: CT maxillofacial bones CT performed on the same day. Reason for exam: Abnormal findings. FINDINGS: Similar appearing severe periodontal disease with multiple dental caries in the mid and po sterior maxilla and mandible. No discrete abscess is seen. Air in the left posterior pharyngeal soft tissues appear similar to the previous exam and grossly similar to the previous study performed in 20 16. Contrast enhancing opacification of the right maxillary sinus consistent with chronic sinus disease. Mucosal thickening in the ethmoid sinus is likely reactive from the periodontal disease. No acute facial fractures are seen. The partially imaged cervical spine appears grossly unremarkable. Impression: 1. Similar appearing severe periodontal disease with dental caries seen throughout the mandible and m axilla. No discrete abscess is seen. 2. Chronic opacification of the right maxillary sinus with contrast enhancement. 3. Mucosal thickening in the ethmoid sinuses likely sinus disease/reactivity from the superior perio dontal disease.
== END 2018-04-14 16:29 | disposition admitted as inpatient to this hospital (09) ==
LOC: ED 13:34
DX: K08.89 Other specified disorders of teeth and supporting structures (principal); K02.7 Dental root caries; K05.20 Aggressive periodontitis, unspecified
CPT/HCPCS: 36415; 80048; 85025; 99283

== ENCOUNTER 2018-07-26 14:41 | Emergency (ER) ==
[2018-07-26 14:46] VITALS: BP 117/66; TEMP 98.5; BMI 18.6
--- NOTE | 2018-07-26 15:51 | DI ---
Exam: Left hand three view HISTORY: Trauma. FINDINGS: Three views of the left hand demonstrate no evidence of acute fracture or dislocation. Th ere is no osseous erosion or radiodense foreign body. There is no significant soft tissue swelling v isualized. IMPRESSION: No acute fracture or dislocation involving the left hand.
--- NOTE | 2018-07-26 15:51 | DI ---
EXAM: Left wrist three-view HISTORY: Trauma COMPARISON: None FINDINGS: The bones are normal. The joints are normal. No focal soft tissue abnormality. IMPERSSION: Normal examination.
--- NOTE | 2018-07-26 16:07 | ED.PDOC ---
General ED Provider: Dr. JELANI TURCIOS Chief Complaint: Hand Pain/Injury Stated Complaint: hand and wrist ernestina after punching a wall Time Seen by Physician: 15:00 (seen with michelle) Mode of Arrival: Walk-In Information Source: Patient Exam Limitations: No limitations Primary Care Provider: GABRIELLE SANTOS Nursing and Triage Documentation Reviewed and Agree: Yes Does patient meet sepsis criteria?: No System Inflammatory Response Syndrome: Not Applicable Sepsis Protocol: For patient's 13 years and over: Temp is 96.8 and below OR 101 and greater Pulse >90 BPM Resp >20/minute Acutely Altered Mental Status Are patient's symptoms suggestive of a new infection, such as: -Pneumonia -Skin, Soft Tissue -Endocarditis -UTI -Bone, Joint Infection -Implantable Device -Acute Abdominal Infection -Wound Infection -Meningitis -Blood Stream Catheter Infection -Unknown Musculoskeletal Complaint Exam - Hand/Wrist Complaint/Exam Location of Pain: Reports: Left, Hand, Wrist Mechanism of Injury: Reports: Trauma (blunt) Onset/Duration: today Symptoms Are: Still present Onset of Pain: Reports: Minutes Initial Severity: Mild Current Severity: Mild Location: Reports: Discrete Character: Reports: Aching Alleviating: Reports: Rest, Elevation Aggravating: Reports: Movement Associated Signs and Symptoms: Denies: Swelling, Redness, Bruising, Fever, Weakness, Numbness, Tingling Dominant Hand: Right Hand/Wrist Findings: Absent: Swelling, Ecchymosis, Abnormal contour Differential Diagnoses: Closed Fracture Review of Systems - Review Of Systems Constitutional: Reports: No symptoms Eyes: Reports: No symptoms Ears, Nose, Mouth, Throat: Reports: No symptoms Respiratory: Reports: No symptoms Cardiac: Reports: No symptoms GI: Reports: No symptoms : Reports: No symptoms Musculoskeletal: Reports: Joint pain (left hand/wrist) Skin: Reports: No symptoms Neurological: Reports: No symptoms Endocrine: Reports: No symptoms Hematologic/Lymphatic: Reports: No symptoms All Other Systems: Reviewed and Negative Past Medical History - Past Medical History Previously Healthy: Yes Endocrine: Reports: None Cardiovascular: Reports: None Respiratory: Reports: None Hematological: Reports: None Gastrointestinal: Reports: None Genitourinary: Reports: None Neuro/Psych: Reports: None, Other Musculoskeletal: Reports: None Cancer: Reports: None Last Menstrual Period: [id number] - Surgical History General Surgical History: Reports: None - Family History Family History: Reports: None - Social History Smoking Status: Former smoker Hx Substance Use: Yes (MARIJUANA) Alcohol Screening: Occasionally - Immunizations Tetanus Shot up to Date: Yes Physical Exam - Physical Exam Appearance: Well-appearing, No pain distress, Well-nourished Eyes: ZACKARY, EOMI, Conjunctiva clear ENT: Ears normal, Nose normal, Oropharynx normal Respiratory: Airway patent, Breath sounds clear, Breath sounds equal, Respirations nonlabored Cardiovascular: RRR, Pulses normal, No rub, No murmur GI/: Soft, Nontender, No masses, Bowel sounds normal, No Organomegaly Musculoskeletal: Limited ROM (left hand 5th MCP NO PAIN OVER THE SUNFF BOX ) Skin: Warm, Dry, Normal color Neurological: Sensation intact, Motor intact, Reflexes intact, Cranial nerves intact, Alert, Oriented Psychiatric: Affect appropriate, Mood appropriate Interpretation - Radiology Interpretation Radiology Interpretation By: Radiologist Radiology Results: No acute changes (NO FX NOTED) Critical Care Note - Critical Care Note Total Time (mins): 0 Course - Course Orders, Labs, Meds: Orders Category Date Time Status HAND, LEFT 3 VIEWS Stat RADS 07/26/18 15:26 Completed WRIST, LEFT 3 VIEWS Stat RADS 07/26/18 15:27 Completed Vital Signs: Temp Pulse Resp BP Pulse Ox 07/26/18 14:43 98.5 F 94 H 18 117/66 97 Departure - Departure Time of Disposition: 16:07 Disposition: HOME SELF-CARE Discharge Problem: Injury of hand, Hand pain Instructions: Hand Sprain (ED) Condition: Good Pt referred to PMD for follow-up: Yes IPMP verified?: No Additional Instructions: Please call your Family Physician as soon as possible to schedule a follow-up appointment. Prescriptions: Nabumetone [Relafen] 500 mg PO BIDWM #4 tablet Allergies/Adverse Reactions: Allergies Penicillins Adverse Reaction (Verified 07/26/18 14:46) Swelling Home Medications: Ambulatory Orders Nabumetone [Relafen] 500 mg PO BIDWM #4 tablet 07/26/18
== END 2018-07-26 16:44 | disposition home or self-care (01) ==
LOC: ED 14:41
DX: S69.92XA Unspecified injury of left wrist, hand and finger(s), initial encounter (principal); W22.8XXA Striking against or struck by other objects, initial encounter
CPT/HCPCS: 99283

== ENCOUNTER 2018-12-31 22:12 | Emergency (ER) ==
[2018-12-31 22:23] VITALS: BP 123/77; TEMP 97.8; BMI 19.5
--- NOTE | 2019-01-01 00:23 | ED.PDOC ---
General ED Provider: Dr. VEENA SEPULVEDA-ER Chief Complaint: Non-specific Complaint Stated Complaint: my hands are swollen Time Seen by Physician: 00:21 Mode of Arrival: Walk-In Information Source: Patient Exam Limitations: No limitations Primary Care Provider: GABRIELLE KIRBY Nursing and Triage Documentation Reviewed and Agree: Yes Does patient meet sepsis criteria?: No System Inflammatory Response Syndrome: Not Applicable Sepsis Protocol: For patient's 13 years and over: Temp is 96.8 and below OR 101 and greater Pulse >90 BPM Resp >20/minute Acutely Altered Mental Status Are patient's symptoms suggestive of a new infection, such as: -Pneumonia -Skin, Soft Tissue -Endocarditis -UTI -Bone, Joint Infection -Implantable Device -Acute Abdominal Infection -Wound Infection -Meningitis -Blood Stream Catheter Infection -Unknown Musculoskeletal Complaint Exam - Hand/Wrist Complaint/Exam Location of Pain: Reports: Right, Left, Hand Symptoms Are: Still present Onset of Pain: Reports: Immediate Initial Severity: Mild Current Severity: Mild Location: Reports: Discrete Character: Reports: Dull, Aching Aggravating: Reports: Movement Associated Signs and Symptoms: Reports: Swelling Hand/Wrist Findings: Present: Swelling Tenderness: Present: Metacarpal, Phalanx Compartment Syndrome Risk Factors: Present: Pain Differential Diagnoses: Tendonitis, Tenosynovitis, Other Review of Systems - Review Of Systems Constitutional: Reports: No symptoms Eyes: Reports: No symptoms Ears, Nose, Mouth, Throat: Reports: No symptoms Respiratory: Reports: No symptoms Cardiac: Reports: No symptoms GI: Reports: No symptoms : Reports: No symptoms Musculoskeletal: Reports: Joint pain, Joint swelling Skin: Reports: No symptoms Neurological: Reports: No symptoms Endocrine: Reports: No symptoms Hematologic/Lymphatic: Reports: No symptoms All Other Systems: Reviewed and Negative Past Medical History - Past Medical History Previously Healthy: Yes Endocrine: Reports: None Cardiovascular: Reports: None Respiratory: Reports: None Hematological: Reports: None Gastrointestinal: Reports: None Genitourinary: Reports: None Neuro/Psych: Reports: None, Other Musculoskeletal: Reports: None Cancer: Reports: None Last Menstrual Period: PRESENTLY - Surgical History General Surgical History: Reports: None - Family History Family History: Reports: None - Social History Smoking Status: Current every day smoker, Light tobacco smoker Hx Substance Use: Yes (MARIJUANA) Alcohol Screening: None - Immunizations Tetanus Shot up to Date: Yes Physical Exam - Physical Exam Appearance: Well-appearing, No pain distress, Well-nourished Pain Distress: Mild Eyes: ZACKARY, EOMI, Conjunctiva clear ENT: Ears normal, Nose normal, Oropharynx normal Neck: Supple Respiratory: Airway patent, Breath sounds clear, Breath sounds equal, Respirations nonlabored Cardiovascular: RRR, Pulses normal, No rub, No murmur GI/: Soft, Nontender, No masses, Bowel sounds normal, No Organomegaly Musculoskeletal: Limited ROM Skin: Warm, Dry, Normal color Neurological: Sensation intact, Motor intact, Reflexes intact, Cranial nerves intact, Alert, Oriented Psychiatric: Affect appropriate, Mood appropriate, Anxious Critical Care Note - Critical Care Note Total Time (mins): 0 Course - Course Hematology/Chemistry: 12/31/18 23:20 12/31/18 23:20 Orders, Labs, Meds: Lab Review 12/31/18 12/31/18 12/31/18 23:20 23:20 23:45 WBC 4.96 RBC 3.50 L Hgb 10.1 L Hct 30.4 L MCV 86.9 MCH 28.9 MCHC 33.2 RDW Coeff of Jeffrey 15.9 H Plt Count 458 H Immature Gran % (Auto) 0.2 Neut % (Auto) 73.2 Lymph % (Auto) 21.2 [place]aton % (Auto) 5.0 Eos % (Auto) 0.2 Baso % (Auto) 0.2 Immature Gran # (Auto) 0.0 Neut # (Auto) 3.6 Lymph # (Auto) 1.1 [place] # (Auto) 0.3 L Eos # (Auto) 0.0 Baso # (Auto) 0.0 Sodium 140.3 Potassium 4.36 Chloride 105.3 Carbon Dioxide 25.6 Anion Gap 13.76 BUN 11.5 Creatinine 0.65 Estimated GFR (MDRD) 104.00 BUN/Creatinine Ratio 17.69 Glucose 107.1 H Calcium 8.81 Total Bilirubin 0.20 AST 98.6 H ALT 144.7 H Alkaline Phosphatase 115.1 Total Protein 7.78 Albumin 3.98 Globulin 3.80 Albumin/Globulin Ratio 1.04 TSH 0.135 L Urine Color Yellow Urine Clarity Clear Urine pH 6.0 Ur Specific [place] 1.015 Urine Protein Negative Urine Glucose (UA) Negative Urine Ketones Negative Urine Blood 3+ Urine Nitrite Negative Urine Bilirubin Negative Urine Urobilinogen 0.2 Ur Leukocyte Esterase Negative Urine Microscopic RBC 20-30 Ur Squamous Epith Cells 2-5 Orders Category Date Time Status CBC W/ AUTO DIFF Stat LAB 12/31/18 23:20 Completed COMPREHENSIVE METABOLIC PANEL Stat LAB 12/31/18 23:20 Completed ESR Stat LAB 01/01/19 00:21 Ordered RHEUMATOID ARTHRITIS FACTOR Stat LAB 01/01/19 00:21 Ordered THYROID STIMULATING HORMONE Stat LAB 12/31/18 23:20 Completed URINALYSIS C & S IF INDICATED Stat LAB 12/31/18 23:45 Completed Vital Signs: Temp Pulse Resp BP Pulse Ox 12/31/18 22:13 97.8 F 79 18 123/77 99 Departure - Departure Time of Disposition: 00:23 Disposition: HOME SELF-CARE Discharge Problem: Arthralgia Qualifiers: Joint pain location: hand Laterality: bilateral Qualified Code(s): M25.541 - Pain in joints of right hand Instructions: Arthralgia (ED) Condition: Good Pt referred to PMD for follow-up: Yes IPMP verified?: No Additional Instructions: f/u with dr kirby on sed rate, rheumatoid factor and abnormal thyroid testing and liver enzyme testing Allergies/Adverse Reactions: Allergies Penicillins Adverse Reaction (Verified 12/31/18 22:24) Swelling Home Medications: Ambulatory Orders 1 [No Reported Medications] 12/31/18 Disposition Discussed With: Patient, Family
== END 2019-01-01 00:30 | disposition home or self-care (01) ==
LOC: ED 22:12
DX: M25.541 Pain in joints of right hand (principal); M25.542 Pain in joints of left hand; M79.89 Other specified soft tissue disorders; F17.210 Nicotine dependence, cigarettes, uncomplicated
CPT/HCPCS: 36415; 80053; 81001; 84443; 85025; 85651; 86430; 99283